=== PATIENT | female | born 1965 | race Caucasian/White ===

== ENCOUNTER 2017-12-15 13:38 | Day surgery (SDC) | END 2017-12-15 19:07 | disposition home or self-care (01) ==

== ENCOUNTER 2018-02-24 17:04 | Emergency (ER) | END 2018-02-24 23:29 | disposition home or self-care (01) ==

== ENCOUNTER 2018-03-23 16:19 | Emergency (ER) | END 2018-03-23 19:20 | disposition home or self-care (01) ==

== ENCOUNTER 2018-04-12 08:20 | Emergency (ER) | END 2018-04-12 09:21 | disposition home or self-care (01) ==

== ENCOUNTER 2018-04-24 19:18 | Emergency (ER) | END 2018-04-24 21:46 | disposition home or self-care (01) ==

== ENCOUNTER 2018-09-14 07:39 | Day surgery (SDC) | payer OTHER ==
[~2018-09-14] VITALS: Ht 157.5 cm; Wt 57.8 kg
[~2018-09-14 07:39] MED LIST: ASPI81TA52 PO; ATOR40TA68 PO; BENA20TA4 PO; CEPH-443 PO; CLIN300C10 PO; D-ME473S2 PO; FLUC150T PO; GLIP10TA14 PO; IBUP-1542 PO; METF100010 PO; OMEP20CA16 PO; PHEN-538 PO; SITA100T11 PO; SULF1TAB31 PO; TRAM50TA2 PO
[2018-09-14] MEDS ORDERED: LIDOCAINE 4% SOLUTION 50 ML BTL ONE (08:44)
[2018-09-14 09:01] VITALS: Ht 157.5 cm; Wt 57.8 kg
[2018-09-14] MEDS ORDERED: SIMVASTATIN PO (09:07)
[2018-09-14] MEDS ORDERED: BP MED PO (09:07)
[2018-09-14] MEDS ORDERED: FENTAnyl 50 MCG/ML VIAL ONE (10:58)
[2018-09-14] MEDS ORDERED: MIDAZOLAM 1 MG/ML 2 ML INJ ONE ×2 (10:58)
[2018-09-14] MEDS ORDERED: NALOXONE (0.4 MG/ML) INJ ONE (10:59)
== END 2018-09-14 15:12 | disposition home or self-care (01) ==
LOC: GIL 07:39
PROVIDERS: ATTEND Internal Medicine Gastroenterology
DX: Z12.11 Encounter for screening for malignant neoplasm of colon (principal); K29.50 Unspecified chronic gastritis without bleeding; K64.4 Residual hemorrhoidal skin tags; K31.811 Angiodysplasia of stomach and duodenum with bleeding; K20.8 Other esophagitis; E11.9 Type 2 diabetes mellitus without complications
CPT/HCPCS: 43239; 45378; 82962; 84703; 88305; 88312; J2250; J2310; J3010; Z7610

== ENCOUNTER 2018-11-25 07:46 | Emergency (ER) | payer OTHER ==
[~2018-11-25] VITALS: Ht 157.5 cm; Wt 57.0 kg
[~2018-11-25 07:46] MED LIST changes: -ASPI81TA52 PO; -ATOR40TA68 PO; -BENA20TA4 PO; +BP MED PO; -CEPH-443 PO; -CLIN300C10 PO; -D-ME473S2 PO; -FLUC150T PO; -IBUP-1542 PO; -OMEP20CA16 PO; -PHEN-538 PO; +SIMVASTATIN PO; -SITA100T11 PO; -SULF1TAB31 PO; -TRAM50TA2 PO
[2018-11-25 07:47] VITALS: BP 143/90; PULSE 76; RESP 16; Ht 157.5 cm; Wt 57.0 kg
[2018-11-25] MEDS ORDERED: KETOROLAC 15 MG INJ IM STA (08:12)
[2018-11-25] MEDS ORDERED: BACL10TA PO (09:22)
[2018-11-25] MEDS ORDERED: IBUP-1542 PO (09:22)
--- NOTE | 2018-11-25 09:30 | ERD ---
ER Documentation Chief Complaint Chief Complaint DIZZINESS X 2 WEEKS , HEADACHE X 1 DAY , FREQUENCY OF URINATION , ITCHING HPI Patient is a 53-year-old female with past medical history of DM type II, hyperlipidemia presents to the ER for concerns of multiple complaints. Patient states she is having headache. She describes the pain to be throughout her head. She states pain started yesterday. She states she has had headaches in the past. Patient states she feels as if she has a "balloon" in her head. Patient denies any blurry vision, nausea, vomiting, acute confusion, excessive sleepiness or loss of consciousness. Patient denies photophobia or phonophobia. Patient denies any fevers, chills, neck pain or neck stiffness. Patient does have tenderness to her right trapezius muscles. Patient denies any falls or tr auma. Patient denies any blood thinner use. Patient also states that she is having urinary urgency. Patient states she had UTIs in the past and she wants to make sure she does not have a UTI. She denies any frequency or hematuria. She denies any flank pain. Patient also reports generalized itching throughout her body. She states her arms are itchy. Patient has no rashes. She denies any abdominal pain, chest pain, shortness of breath. ROS All systems reviewed and are negative except as per history of present illness. Medications Home Meds Active Scripts Baclofen* (Baclofen*) 10 Mg Tablet, 10 MG PO TID, #15 TAB Prov:VISHAL JULIAN PA-C 11/25/18 Ibuprofen* (Motrin*) 600 Mg Tab, 600 MG PO Q6, #30 TAB Prov:VISHAL JULIAN PA-C 11/25/18 Reported Medications [Bp Med] No Conflict Check, PO 09/14/18 [Simvastatin] No Conflict Check, PO 09/14/18 Metformin Hcl* (Metformin Hcl*) 1,000 Mg Tablet, 1000 MG PO WITH BREAKFAST DINNE, #60 TAB 12/15/17 Glipizide* (Glipizide*) 10 Mg Tablet, 10 MG PO AC BREAKFAST DINNER, TAB 12/15/17 Allergies Allergies: Coded Allergies: ranitidine (Verified Allergy, Unknown, RASH, 04/12/18) PMhx/Soc History of Surgery: Yes (CSECTION X2) Anesthesia Reaction: No Hx Neurological Disorder: No Hx Respiratory Disorders: No Hx Cardiac Disorders: Yes (HTN, HIGH CHOLESTEROL) Hx Psychiatric Problems: No Hx Miscellaneous Medical Probl: No Hx Alcohol Use: No Hx Substance Use: No Hx Tobacco Use: No Smoking Status: Never smoker FmHx Family History: No diabetes Physical Exam Vitals Vital Signs Date Temp Pulse Resp B/P (MAP) Pulse Ox O2 O2 Flow FiO2 Time Delivery Rate 11/25/18 98.2 76 16 143/90 100 07:47 (107) Physical Exam GENERAL: Well-developed, well-nourished female. Appears in no acute distress. Speaking in full sentences. HEAD: Normocephalic, atraumatic. EYES: Pupils are equally reactive bilaterally. EOMs grossly intact. No c onjunctival erythema. ENT: Moist mucous membranes. No uvula deviation. No kissing tonsils. NECK: Supple. No meningismus. Normal range of motion of the neck. Tender to palpation of right trapezius muscles. LUNG: Clear to auscultation bilaterally. No rhonchi, wheezing, rales or coarse breath sounds. HEART: Regular rate and rhythm. No murmurs, rubs or gallops. EXTREMITIES: Equal pulses bilaterally. No peripheral clubbing, cyanosis or edema. No unilateral leg swelling. NEUROLOGIC: Alert and oriented x3, cooperative. Mood and affect appropriate to situation. Cranial nerves II through XII are grossly intact. Normal speech. Motor exam: 5/5 strength in upper and lower extremities. Sensory exam: Sensation intact to light touch on all four extremities. Steady gait. No pronator drift. SKIN: Normal color. Warm and dry. No rashes or lesions. Results 24 hrs Laboratory Tests Test 11/25/18 08:26 11/25/18 08:27 POC Beta HCG, Qualitative NEGATIVE Bedside Urine pH (LAB) 6.0 Bedside Urine Protein (LAB) Negative Bedside Urine Glucose (UA) 0.1% Bedside Urine Ketones (LAB) Negative Bedside Urine Blood Negative Bedside Urine Nitrite (LAB) Negative Bedside Urine Leukocyte Esterase (L Negative Current Medications Medications Dose Sig/Gabo Start Time Status Last (Trade) Ordered Route PRN Stop Time Admin Dose Reason Admin Ketorolac 15 mg ONCE STAT 11/25/18 DC 11/25/18 Tromethamine IM 08:12 08:33 (Toradol) 11/25/18 08:14 Procedures/MDM MEDICAL DECISION MAKING: This is a 53-year-old female presents the ER for concerns of multiple complaints. Patient states she has a headache, urinary urgency and generalized body itching. Vital signs were reviewed. Patient was afebrile. Patient is not hypoxic. Patient has had headaches in the past. Patient denied any fevers, neck stiffness, jaw claudication, visual changes or LOC. On exam, patient did have reproducible pain to her right trapezius muscles. Muscle spasms were noted. Full neurological exam was normal. Patient likely has a tension headache. Patient was given Toradol IM and she did report improvement in symptoms. Patient's urine was negative for acute infection or hematuria. Patient was advised that her urinary urgency is likely due to her diabetes. Patient was advised on strict DM compliance. Patient advised to follow-up with her regular doctor for further management of her symptoms. Patient was advised to take Benadryl for generalized itching. At this time, the patient presentation most consistent with tension headache, urinary urgency and generalized itching. Differential diagnosis includes but was not limited to CVA, TIA, intracranial hemorrhage, meningitis, encephalitis, CO poisoning, temporal arteritis, benign intracranial hypertension, intracranial mass, glaucoma, preeclampsia, sinusitis, pyelonephritis, nephrolithiasis, DKA. PRESCRIPTIONS: Ibuprofen, baclofen DISCHARGE: At this time, patient is stable for discharge and outpatient management. I have encouraged the patient to hydrate well. I have instructed the patient to follow- up with his/her primary care physician in 1-2 days. If symptoms persist, patient may need to see a specialist for further examinations and testing. I have instructed the patient to promptly return to the ER at any time for any new or worsening symptoms including increased increased pain, fever, nausea, vomiting, numbness, neck stiffness, visual changes, weakness or LOC. The patient and/or family expressed understanding of and agreement with this plan. All questions were answered. Home care instructions were provided. Disclaimer: Inadvertent spelling and grammatical errors are likely due to EHR/dictation software use and do not reflect on the overall quality of patient care. Also, please note that the electronic time recorded on this note does not necessarily reflect the actual time of the patient encounter. Departure Diagnosis: Primary Impression: Multiple complaints Additional Impressions: Tension headache Urinary urgency Muscle spasms of neck Condition: Fair Patient Instructions: Tension Headaches, Dysuria, Uncertain Cause (Adult) Referrals: COMMUNITY CLINICS YOU HAVE RECEIVED A MEDICAL SCREENING EXAM AND THE RESULTS INDICATE THAT YOU DO NOT HAVE A CONDITION THAT REQUIRES URGENT TREATMENT IN THE EMERGENCY DEPARTMENT. FURTHER EVALUATION AND TREATMENT OF YOUR CONDITION CAN WAIT UNTIL YOU ARE SEEN IN YOUR DOCTORS OFFICE WITHIN THE NEXT 1-2 DAYS. IT IS YOUR RESPONSIBILITY TO MAKE AN APPOINTMENT FOR FOLOW-UP CARE. IF YOU HAVE A PRIMARY DOCTOR --you should call your primary doctor and schedule an appointment IF YOU DO NOT HAVE A PRIMARY DOCTOR YOU CAN CALL OUR PHYSICIAN REFERRAL HOTLINE AT IF YOU CAN NOT AFFORD TO SEE A PHYSICIAN YOU CAN CHOSE FROM THE FOLLOWING [facility] [address] [facility] [facility] [address] [facility] [facility] [address] [facility] [facility] [address] [facility] [facility] [address] [facility]. [facility] [address] [facility]. [facility] YOU HAVE RECEIVED A MEDICAL SCREENING EXAM AND THE RESULTS INDICATE THAT YOU DO NOT HAVE A CONDITION THAT REQUIRES URGENT TREATMENT IN THE EMERGENCY DEPARTMENT. FURTHER EVALUATION AND TREATMENT OF YOUR CONDITION CAN WAIT UNTIL YOU ARE SEEN IN YOUR DOCTORS OFFICE WITHIN THE NEXT 1-2 DAYS. IT IS YOUR RESPONSIBILITY TO MAKE AN APPOINTMENT FOR FOLOW-UP CARE. IF YOU HAVE A PRIMARY DOCTOR --you should call your primary doctor and schedule and appointment IF YOU DO NOT HAVE A PRIMARY DOCTOR YOU CAN CALL OUR PHYSICIAN REFERRAL HOTLINE AT . IF YOU CAN NOT AFFORD TO SEE A PHYSICIAN YOU CAN CHOSE FROM THE FOLLOWING [facility] INSTITUTIONS: [facility] [address] [place] [address] [facility] [address] [place] [address] [facility] + [facility] [address] [place] [address] Additional Instructions: Call your primary care doctor TOMORROW for an appointment during the next 1-2 days.See the doctor sooner or return here if your condition worsens before your appointment time. VISHAL JULIAN PA-C November 25, 2018 09:30
== END 2018-11-25 09:26 | disposition home or self-care (01) ==
LOC: FTE 07:46
DX: G44.209 Tension-type headache, unspecified, not intractable (principal); R39.15 Urgency of urination; M62.838 Other muscle spasm; E11.9 Type 2 diabetes mellitus without complications; I10 Essential (primary) hypertension; Z79.84 Long term (current) use of oral hypoglycemic drugs
CPT/HCPCS: 81003; 81025; 96372; J1885; Z7502

== ENCOUNTER 2018-11-29 18:11 | Inpatient (IN) | payer OTHER ==
[~2018-11-29] VITALS: Ht 157.5 cm; Wt 57.3 kg
[~2018-11-29 18:11] MED LIST changes: +BACL10TA PO; +IBUP-1542 PO
[2018-11-29] MEDS ORDERED: ASPIRIN 325 MG TAB PO ONE (21:00)
[2018-11-29] MEDS ORDERED: BISACODYL (EC) 5 MG TAB PO PRN (21:30)
[2018-11-29] MEDS ORDERED: ACETAMINOPHEN 325 MG TAB PO PRN ×2 (21:30)
[2018-11-29] MEDS ORDERED: DOCUSATE SODIUM 100 MG CAP PO PRN (21:30)
[2018-11-29] MEDS ORDERED: ONDANSETRON 4 MG INJ IV PRN ×2 (21:30)
[2018-11-29] MEDS ORDERED: NACL 0.9% 3 ML SYG IV SCH (21:30)
[2018-11-29] MEDS ORDERED: hydrALAzine 20 MG INJ IV PRN (21:30)
--- NOTE | 2018-11-29 21:57 | ERD ---
ER Documentation Chief Complaint Chief Complaint Headache 4days feels she has a fevers, generalized malaise HPI Patient is a 53-year-old female with hypertension, diabetes, and high cholesterol who presents with headache. She had a headache which started on Monday. She felt hot in the head and the face. Today she started with left leg, left arm, and left facial numbness. She was seen on November 25 and was discharged from the emergency department that day. She has had no treatment as of yet. The symptoms have been constant. Upon review of old medical records the patient has multiple visits for various complaints. The patient does not remember the name of the primary doctor. ROS All systems reviewed and are negative except as per history of present illness. Medications Home Meds Active Scripts Baclofen* (Baclofen*) 10 Mg Tablet, 10 MG PO TID, #15 TAB Prov:VISHAL JULIAN PA-C 11/25/18 Ibuprofen* (Motrin*) 600 Mg Tab, 600 MG PO Q6, #30 TAB Prov:VISHAL JULIAN PA-C 11/25/18 Reported Medications [Bp Med] No Conflict Check, PO 09/14/18 [Simvastatin] No Conflict Check, PO 09/14/18 Metformin Hcl* (Metformin Hcl*) 1,000 Mg Tablet, 1000 MG PO WITH BREAKFAST DINNE, #60 TAB 12/15/17 Glipizide* (Glipizide*) 10 Mg Tablet, 10 MG PO AC BREAKFAST DINNER, TAB 12/15/17 Allergies Allergies: Coded Allergies: ranitidine (Verified Allergy, Unknown, RASH, 04/12/18) PMhx/Soc History of Surgery: Yes (CSECTION X2) Anesthesia Reaction: No Hx Neurological Disorder: No Hx Respiratory Disorders: No Hx Cardiac Disorders: Yes (HTN, HIGH CHOLESTEROL) Hx Psychiatric Problems: No Hx Miscellaneous Medical Probl: No Hx Alcohol Use: No Hx Substance Use: No Hx Tobacco Use: No Smoking Status: Never smoker FmHx Family History: diabetes Physical Exam Vitals Vital Signs Date Temp Pulse Resp B/P (MAP) Pulse Ox O2 O2 Flow FiO2 Time Delivery Rate 11/29/18 74 20 149/90 100 Room Air 21:00 (109) 11/29/18 77 18 149/94 100 Room Air 20:00 (112) 11/29/18 75 12 136/83 100 Room Air 19:08 (100) 11/29/18 97.2 81 22 130/87 100 18:31 (101) Physical Exam Const: No acute distress Head: Atraumatic Eyes: Normal Conjunctiva ENT: Normal External Ears, Nose and Mouth. Neck: Full range of motion. No meningismus. Resp: Clear to auscultation bilaterally Cardio: Regular rate and rhythm, no murmurs Abd: Soft, non tender, non distended. Normal bowel sounds Skin: No petechiae or rashes Back: No midline or flank tenderness Ext: No cyanosis, or edema Neur: Awake and alert, cranial nerves II through XII are intact, strength is 5 out of 5 in all 4 extremities, no slurred speech or pronator drift, patient does report sensation loss to the left face, left arm, and left leg Psych: Normal Mood and Affect Result Diagram: 11/29/18191511/29/181915 Results 24 hrs Laboratory Tests Test 11/29/18 19:16 11/29/18 19:34 White Blood Count 5.0 10^3/ul Red Blood Count 4.48 10^6/ul Hemoglobin 13.3 g/dl Hematocrit 39.7 % Mean Corpuscular Volume 88.6 fl Mean Corpuscular Hemoglobin 29.7 pg Mean Corpuscular Hemoglobin Concent 33.5 g/dl Red Cell Distribution Width 11.9 % Platelet Count 233 10^3/UL Mean Platelet Volume 9.7 fl Immature Granulocytes % 0.400 % Neutrophils % 56.3 % Lymphocytes % 30.9 % Monocytes % 8.8 % Eosinophils % 3.2 % Basophils % 0.4 % Nucleated Red Blood Cells % 0.0 /100WBC Immature Granulocytes # 0.020 10^3/ul Neutrophils # 2.8 10^3/ul Lymphocytes # 1.5 10^3/ul Monocytes # 0.4 10^3/ul Eosinophils # 0.2 10^3/ul Basophils # 0.0 10^3/ul Nucleated Red Blood Cells # 0.0 10^3/ul Prothrombin Time 12.4 Sec Prothrombin Time Ratio 1.0 INR International Normalized Ratio 0.91 Activated Partial Thromboplast Time 25.8 Sec Urine Color YELLOW Urine Clarity CLEAR Urine pH 6.0 Urine Specific Cranks 1.022 Urine Ketones TRACE mg/dL Urine Nitrite NEGATIVE mg/dL Urine Bilirubin NEGATIVE mg/dL Urine Urobilinogen NEGATIVE mg/dL Urine Leukocyte Esterase NEGATIVE Bhavik/ul Urine Hemoglobin NEGATIVE mg/dL Urine Glucose 3+ mg/dL Urine Total Protein NEGATIVE mg/dl Sodium Level 140 mmol/L Potassium Level 4.0 mmol/L Chloride Level 103 mmol/L Carbon Dioxide Level 28 mmol/L Anion Gap 9 Blood Urea Nitrogen 22 mg/dl Creatinine 0.70 mg/dl Est Glomerular Filtrat Rate mL/min > 60 mL/min Glucose Level 198 mg/dl Hemoglobin A1c 9.7 % Calcium Level 9.5 mg/dl Troponin I < 0.012 ng/ml Triglycerides Level 142 mg/dl Cholesterol Level 152 mg/dl LDL Cholesterol, Calculated 83 mg/dl HDL Cholesterol 41 mg/dl Cholesterol/HDL Ratio 3.7 RATIO Urine Opiates Screen Negative Urine Barbiturates Negative Urine Amphetamines Screen Negative Urine Benzodiazepines Screen Negative Urine Cocaine Screen Negative Urine Cannabinoids Negative Bedside Glucose 192 mg/dL Current Medications Medications Dose Sig/Gabo Start Time Status Last (Trade) Ordered Route PRN Stop Time Admin Dose Reason Admin Aspirin 325 mg ONCE ONCE 11/29/18 DC 11/29/18 (Aspirin) PO 21:00 21:11 11/29/18 21:01 Ondansetron 4 mg ER BRIDGE 11/29/18 HCl (Zofran PRN IV 21:30 Inj) NAUSEA/VOMITI 11/30/18 21:29 NG 650 mg ER BRIDGE 11/29/18 Acetaminophen PRN PO 21:30 (Tylenol .MILD PAIN 11/30/18 21:29 Tab) 1-3 OR TEMP IV Flush 3 ml PER 11/29/18 (NS 3 ml) PROTOCOL IV 21:30 Ondansetron 4 mg Q6H PRN 11/29/18 HCl (Zofran IV 21:30 Inj) NAUSEA/VOMITI NG Aspirin 81 mg DAILY PO 11/30/18 (Aspirin) 09:00 650 mg Q6H PRN 11/29/18 Acetaminophen PO .PAIN 1-3 21:30 (Tylenol OR TEMP Tab) Docusate 100 mg Q12H PRN 11/29/18 Sodium PO 21:30 (Colace) .CONSTIPATION Bisacodyl 5 mg DAILY PRN 11/29/18 (Dulcolax) PO 21:30 .CONSTIPATION Hydralazine 10 mg Q4H PRN 11/29/18 HCl IV ELEVATED 21:30 (Apresoline) BLOOD PRESSURE Procedures/MDM CT brain negative per radiology. Chest x-ray read by radiology. EKG read by me: Rate/Rhythm: Regular rate and rhythm at a normal rate Intervals: Normal Impression: No evidence of ischemia or arrhythmia Patient is a 53-year-old female who presents with strokelike symptoms. The patient is outside the window for TPA or for mechanical retrieval given the fact that the headache started on Monday. The patient was given aspirin after she passed a swallow evaluation and CT scan was negative for mass or bleed. The patient will need admission to a telemetry bed under the panel team for stroke work-up. Departure Diagnosis: Primary Impression: Stroke Condition: CHENG March MD November 29, 2018 21:57
--- NOTE | 2018-11-29 21:57 | HP ---
Date/Time of Note Date/Time of Note DATE: 11/29/18 TIME: 21:56 Assessment/Plan VTE Prophylaxis SCD applied (from Nsg): Yes Pharmacological prophylaxis: NA/contraindicated Pharm contraindication: low risk/ambulating Lines/Catheters IV Catheter Type (from Nrsg): Saline Lock Assessment/Plan Hospital Course This is a 53-year female being admitted to the telemetry floor for: 1 left-sided paresthesias and weakness: Rule out CVA versus nerve impingement versus complex migraine versus muscle spasm versus other. Patient has all left- sided symptoms. She does have tenderness palpation of the bilateral trapezius muscles which makes me suspicious for possible muscle spasm versus cervical spine pathology. Will check an MRI of the brain and MRI of the cervical spine. I will give the patient a trial of Toradol to see if this helps with her headache as well as her bilateral trapezius muscle spasm. Permissive hypertension for the first 24 hours. Neuro checks every 4 hours. PT OT evaluation. We will check hemoglobin A 1C, lipid panel, TSH. Patient did receive aspirin in the emergency department. Consult neurology 2 hypertension: We will hold patient's home blood pressure medications in the setting of permissive hypertension over the first 24 hours PRN hydralazine for blood pressure greater than 220/120 3. Hyperlipidemia: We will check lipid panel, continue statin 4. Diabetes mellitus: We will check hemoglobin A 1C, resume home diabetes medication, insulin sliding scale 5 DVT GI prophylaxis: SCDs, no GI prophylaxis indicated Further treatment strategy will be implemented as per the clinical course Result Diagram: 11/29/18191511/29/181915 Results 24hrs Laboratory Tests Test 11/29/18 19:16 11/29/18 19:34 White Blood Count 5.0 Red Blood Count 4.48 Hemoglobin 13.3 Hematocrit 39.7 Mean Corpuscular Volume 88.6 Mean Corpuscular Hemoglobin 29.7 Mean Corpuscular Hemoglobin Concent 33.5 Red Cell Distribution Width 11.9 Platelet Count 233 Mean Platelet Volume 9.7 Immature Granulocytes % 0.400 Neutrophils % 56.3 Lymphocytes % 30.9 Monocytes % 8.8 Eosinophils % 3.2 Basophils % 0.4 Nucleated Red Blood Cells % 0.0 Immature Granulocytes # 0.020 Neutrophils # 2.8 Lymphocytes # 1.5 Monocytes # 0.4 Eosinophils # 0.2 Basophils # 0.0 Nucleated Red Blood Cells # 0.0 Prothrombin Time 12.4 Prothrombin Time Ratio 1.0 INR International Normalized Ratio 0.91 Activated Partial Thromboplast Time 25.8 Urine Color YELLOW Urine Clarity CLEAR Urine pH 6.0 Urine Specific [place] 1.022 Urine Ketones TRACE A Urine Nitrite NEGATIVE Urine Bilirubin NEGATIVE Urine Urobilinogen NEGATIVE Urine Leukocyte Esterase NEGATIVE Urine Hemoglobin NEGATIVE Urine Glucose 3+ H Urine Total Protein NEGATIVE Sodium Level 140 Potassium Level 4.0 Chloride Level 103 Carbon Dioxide Level 28 Anion Gap 9 Blood Urea Nitrogen 22 H Creatinine 0.70 Est Glomerular Filtrat Rate mL/min > 60 Glucose Level 198 Hemoglobin A1c 9.7 H Calcium Level 9.5 Troponin I < 0.012 Triglycerides Level 142 Cholesterol Level 152 LDL Cholesterol, Calculated 83 HDL Cholesterol 41 Cholesterol/HDL Ratio 3.7 Urine Opiates Screen Negative Urine Barbiturates Negative Urine Amphetamines Screen Negative Urine Benzodiazepines Screen Negative Urine Cocaine Screen Negative Urine Cannabinoids Negative Bedside Glucose 192 HPI/ROS Admit Date/Time Admit Date/Time Hx of Present Illness Chief complaint: Left-sided upper extremity and facial numbness and weakness, headache This is a 53-year-old female with a past medical history of diabetes mellitus, hypertension, hyperlipidemia who presented to the emergency department with complaints of left-sided numbness and weakness. Patient originally started experiencing a headache on Monday. She was seen on November 25 in the emergency department and was diagnosed with a tension headache and was discharged home. Patient reports that she then started experiencing left-sided facial numbness and left lower upper and lower extremity numbness and weakness. She also was experiencing some eye twitching. When she would eat food she also felt like the sensation was decreased on her left side of the mouth. She does not report any stresses out of the ordinary. She denies any changes in her vision. She denies any fevers or shortness of breath or nausea vomiting or diarrhea. Denies any ringing in the ears. She denies any photophobia or phonophobia. Allergies: Ranitidine Medications: See LASHON MORALES Const: As per HPI Eyes : No pain discharge or redness or change in visual acuity ENT: No pain, sore throat, congestion, congestion, dysphagia or discharge Respiratory: No shortness of breath, cough, sputum, wheezing, or pleuritic pain Cardiovascular: No chest pain, palpitation, PND, or edema GI : no change in appetite, abdominal pain, nausea, vomiting, diarrhea, constipation, or change in the color his stool Genitourinary: No dysuria, hematuria, flank pain , discharge or CVA tenderness Musculoskeletal: No joint pain, back pain, neck pain, restricted range of motion in neck or joints Skin: No rash, bruising or hives Neuro: As per HPI Endocrine: No polyuria, polydipsia, temperature intolerance Psych: No hallucination, depression, anxiety or suicidal ideation PMH/Family/Social Past Medical History Hypertension, hyperlipidemia, diabetes mellitus Medications Current Medications Ondansetron HCl (Zofran Inj) 4 mg ER BRIDGE PRN IV NAUSEA/VOMITING; Start 11/29/18 at 21:30; Stop 11/30/18 at 21:29 Acetaminophen (Tylenol Tab) 650 mg ER BRIDGE PRN PO .MILD PAIN 1-3 OR TEMP; Start 11/29/18 at 21:30; Stop 11/30/18 at 21:29 IV Flush (NS 3 ml) 3 ml PER PROTOCOL IV ; Start 11/29/18 at 21:30 Ondansetron HCl (Zofran Inj) 4 mg Q6H PRN IV NAUSEA/VOMITING; Start 11/29/18 at 21:30 Aspirin (Aspirin) 81 mg DAILY PO ; Start 11/30/18 at 09:00 Acetaminophen (Tylenol Tab) 650 mg Q6H PRN PO .PAIN 1-3 OR TEMP; Start 11/29/18 at 21:30 Docusate Sodium (Colace) 100 mg Q12H PRN PO .CONSTIPATION; Start 11/29/18 at 21:30 Bisacodyl (Dulcolax) 5 mg DAILY PRN PO .CONSTIPATION; Start 11/29/18 at 21:30 Hydralazine HCl (Apresoline) 10 mg Q4H PRN IV ELEVATED BLOOD PRESSURE; Start 11/29/18 at 21:30 Coded Allergies: ranitidine (Unverified Allergy, Unknown, RASH, 11/30/18) Past Surgical History x2 Past Surgical Hx: other Family History Significant Family History: no pertinent family hx Social History Alcohol Use: none Smoking Status: Never smoker Drug Use: none Exam/Review of Systems Vital Signs Vitals Vital Signs Date Temp Pulse Resp B/P (MAP) Pulse Ox O2 O2 Flow FiO2 Time Delivery Rate 11/29/18 74 20 149/90 100 Room Air 21:00 (109) 11/29/18 97.2 18:31 Exam Exam General: Patient is a pleasant female currently lying in bed in no acute distress, she does report feeling subjective numbness in her left upper extremity, subjective occipital headache. HEENT: Atraumatic, normocephalic. The pupils are equal, round and reactive. Extraocular motor are intact Neck: Supple with full range of motion. No rigidity or meningismus Chest: Nontender Lungs: Clear to auscultation bilaterally no crackles rales or wheezing Heart: Normal S1-S2, Regular rhythm and rate. No murmur, S3, or S4 Abdomen: Soft , nontender, nondistended , bowel sounds are present. No guarding no rebound tenderness , No masses or organomegaly. No costovertebral temporal angle mass Extremities: Normal to inspection, no edema no cyanosis Musculoskeletal: Tender to palpation along the bilateral trapezius muscles Neurologic: Normal mental status, speech normal, cranial nerves II through XII are intact, motor and sensory are intact, subjective numbness in the left upper extremity. Additional Comments PROCEDURE: CT Brain without IV contrast. CLINICAL INDICATION: Focal neurological deficit.. TECHNIQUE: A CT of the brain was performed on a multislice detector CT scanner utilizing axial sections from the skull base through the vertex without contrast. Images were reviewed on a high-resolution PACS workstation. Exam CTDlvol = 40 mGy-cm and DLP = 634 mGy-cm. One of the following 3 dose reduction techniques were used: Automated exposure control; adjustment of the mA and/or kV according to patient size; or use of iterative reconstruction technique. DICOM images are available. COMPARISON: None available FINDINGS: There is age appropriate central and peripheral atrophy. There is no midline shift. There is no definite acute stroke. There is no mass lesion. There is no intracranial hemorrhage or abnormal extra-axial fluid collection. Visualized paranasal sinuses are clear. IMPRESSION: No acute intracranial abnormality. RPTAT: HMVK .Tony Jordan MD, Date Time Electronically viewed and signed by .Tony Jordan MD, MD on 11/29/2018 20:52 .K/ CC: CHENG ALCANTARA MD [id number] ROCEDURE: XR Chest. CLINICAL INDICATION: Shortness of breath. TECHNIQUE: Single frontal chest x-ray. COMPARISON: None. FINDINGS: The cardiomediastinal silhouette is unremarkable. There is no congestive heart failure.. No focal infiltrate is seen. There is no pleural effusion. There is no pneumothorax. The osseous structures are unremarkable. IMPRESSION: 1. No active disease. RPTAT: HMVK .Tony Jordan MD, MD Date Time Electronically viewed and signed by .Tony Jordan MD, MD on 11/29/2018 19:55 .K/ CC: CHENG ALCANTARA MD [id number] BOYD ELIZONDO November 29, 2018 21:57
[2018-11-30] VITALS (9 sets, daily range): BP systolic 130–171; BP diastolic 72–76; PULSE 59–88; RESP 18–19; Ht 157.5 cm; Wt 57.3 kg
[2018-11-30] MEDS ORDERED: ASA/ACETAMINOPHEN/CAFF TAB PO ONE (03:30)
[2018-11-30] MEDS ORDERED: KETOROLAC 15 MG INJ IV STA (04:55)
[2018-11-30] MEDS ORDERED: KETOROLAC 15 MG INJ IM STA (04:55)
[2018-11-30] MEDS ORDERED: KETOROLAC 15 MG INJ IV ONE (06:02)
[2018-11-30] MEDS ORDERED: KETOROLAC 15 MG INJ IV PRN (06:03)
[2018-11-30] MEDS: ASPIRIN 81 MG TAB PO SCH (08:17)
[2018-11-30] MEDS ORDERED: GLUCOSE GEL 15 GRAM TUBE BUCCAL PRN (09:30)
[2018-11-30] MEDS ORDERED: GLUCAGON 1 MG INJ IM PRN (09:30)
[2018-11-30] MEDS ORDERED: GLUCOSE GEL 15 GRAM TUBE PO PRN ×2 (09:30)
[2018-11-30] MEDS ORDERED: DEXTROSE 50% 50 ML SYRINGE IV PRN ×2 (09:30)
--- NOTE | 2018-11-30 10:25 | PN ---
Date/Time of Note Date/Time of Note DATE: 11/30/18 TIME: 10:25 Assessment/Plan VTE Prophylaxis Risk score (from Ns)>0 risk: 1 SCD applied (from Ns): Yes Pharmacological prophylaxis: NA/contraindicated Pharm contraindication: low risk/ambulating Lines/Catheters [facility] Saline Lock Urinary Cath still in place: No Assessment/Plan Hospital Course SUBJECTIVE: Continues to complain of left-sided numbness. OBJECTIVE: Physical Exam General: Adequately build 53 year-old female lying in bed in no apparent distress. HEENT: Normocephalic, atraumatic. Eyes: Anicteric sclerae, conjunctivae clear. ENT: Nasal septum midline, oral mucosa moist. Neck supple, no JVD noticed. Respiratory: Bilaterally clear breath sounds. No use of accessory muscles of respiration. No adventitious breath sounds. Cardiovascular: S1, S2 heard. No murmurs or gallops. Abdomen: Soft, nontender, and nondistended. Bowel sounds positive in all 4 cristine drants. Genitourinary: Deferred. Extremities: No cyanosis, no clubbing, no edema. Peripheral pulses palpable. Neurologic: The patient is awake, alert, and oriented. Decreased sensation on the left side of face, left upper extremity, and left lower extremity. Skin: Normal skin turgor. No skin rashes. Labs & Vitals per chart ASSESSMENT & PLAN 53-year-old female with comorbidities including diabetes mellitus, hypertension, dyslipidemia who came to the emergency room with chief complaint of left upper extremity, left lower extremity, and facial numbness, and headache, was admitted to inpatient setting for further treatment and evaluation. 1. Left upper extremity and facial numbness associated with headache. -Etiology unclear. -Brain MRI pending. Brain CT scan negative. -Continue aspirin and statins. -Pending neurology evaluation. 2. Essential hypertension. -Permissive hypertension for suspected stroke. 3. Diabetes mellitus type 2. -Hemoglobin A1c 9.7. -Continue sliding scale insulin. Add basal insulin pre-meal insulin. 4. Dyslipidemia. -Continue statins. 5. Fluids, electrolytes, and nutrition. -Carbohydrate controlled diet. 6. DVT prophylaxis. -Bilateral SCDs. 7. Plan. -Continue aspirin plus statin. -Await neurology evaluation. -Await brain MRI. The patient was seen in collaboration with Dr. Nava. Result Diagram: 11/30/18 0547 11/30/18 0547 Results 24hrs Laboratory Tests Test 11/29/18 19:16 11/29/18 19:34 11/30/18 05:47 White Blood Count 5.0 4.4 L Red Blood Count 4.48 4.43 Hemoglobin 13.3 13.0 Hematocrit 39.7 39.1 Mean Corpuscular Volume 88.6 88.3 Mean Corpuscular Hemoglobin 29.7 29.3 Mean Corpuscular Hemoglobin Concent 33.5 33.2 Red Cell Distribution Width 11.9 12.1 Platelet Count 233 216 Mean Platelet Volume 9.7 10.3 Immature Granulocytes % 0.400 0.200 Neutrophils % 56.3 54.5 Lymphocytes % 30.9 31.3 Monocytes % 8.8 8.8 Eosinophils % 3.2 4.5 Basophils % 0.4 0.7 Nucleated Red Blood Cells % 0.0 0.0 Immature Granulocytes # 0.020 0.010 Neutrophils # 2.8 2.4 Lymphocytes # 1.5 1.4 Monocytes # 0.4 0.4 Eosinophils # 0.2 0.2 Basophils # 0.0 0.0 Nucleated Red Blood Cells # 0.0 0.0 Prothrombin Time 12.4 Prothrombin Time Ratio 1.0 INR International Normalized Ratio 0.91 Activated Partial Thromboplast Time 25.8 Urine Color YELLOW Urine Clarity CLEAR Urine pH 6.0 Urine Specific [place] 1.022 Urine Ketones TRACE A Urine Nitrite NEGATIVE Urine Bilirubin NEGATIVE Urine Urobilinogen NEGATIVE Urine Leukocyte Esterase NEGATIVE Urine Hemoglobin NEGATIVE Urine Glucose 3+ H Urine Total Protein NEGATIVE Sodium Level 140 141 Potassium Level 4.0 4.6 Chloride Level 103 106 Carbon Dioxide Level 28 29 Anion Gap 9 6 Blood Urea Nitrogen 22 H 18 Creatinine 0.70 0.79 Est Glomerular Filtrat Rate mL/min > 60 > 60 Glucose Level 198 312 H Hemoglobin A1c 9.7 H 9.8 H Calcium Level 9.5 9.2 Troponin I < 0.012 Triglycerides Level 142 166 H Cholesterol Level 152 145 LDL Cholesterol, Calculated 83 79 HDL Cholesterol 41 33 L Cholesterol/HDL Ratio 3.7 4.3 Urine Opiates Screen Negative Urine Barbiturates Negative Urine Amphetamines Screen Negative Urine Benzodiazepines Screen Negative Urine Cocaine Screen Negative Urine Cannabinoids Negative Bedside Glucose 192 Magnesium Level 1.6 L Total Bilirubin 0.4 Direct Bilirubin 0.00 Indirect Bilirubin 0.4 Aspartate Amino Transf (AST/SGOT) 18 Alanine Aminotransferase (ALT/SGPT) 22 Alkaline Phosphatase 51 Total Protein 6.3 Albumin 3.8 Globulin 2.50 Albumin/Globulin Ratio 1.52 Thyroid Stimulating Hormone (TSH) Pending Exam/Review of Systems Exam Vitals Vital Signs Date Temp Pulse Resp B/P (MAP) Pulse Ox O2 O2 Flow FiO2 Time Delivery Rate 11/30/18 98.7 61 18 171/73 97 08:23 (105) 11/30/18 Room Air 02:54 Intake and Output 11/29/18 11/29/18 11/30/18 1515:00 23:00 07:00 IntakeIntake Total 600 ml BalanceBalance 600 ml Results Results 24hrs Laboratory Tests Test 11/29/18 19:16 11/29/18 19:34 11/30/18 05:47 White Blood Count 5.0 4.4 L Red Blood Count 4.48 4.43 Hemoglobin 13.3 13.0 Hematocrit 39.7 39.1 Mean Corpuscular Volume 88.6 88.3 Mean Corpuscular Hemoglobin 29.7 29.3 Mean Corpuscular Hemoglobin Concent 33.5 33.2 Red Cell Distribution Width 11.9 12.1 Platelet Count 233 216 Mean Platelet Volume 9.7 10.3 Immature Granulocytes % 0.400 0.200 Neutrophils % 56.3 54.5 Lymphocytes % 30.9 31.3 Monocytes % 8.8 8.8 Eosinophils % 3.2 4.5 Basophils % 0.4 0.7 Nucleated Red Blood Cells % 0.0 0.0 Immature Granulocytes # 0.020 0.010 Neutrophils # 2.8 2.4 Lymphocytes # 1.5 1.4 Monocytes # 0.4 0.4 Eosinophils # 0.2 0.2 Basophils # 0.0 0.0 Nucleated Red Blood Cells # 0.0 0.0 Prothrombin Time 12.4 Prothrombin Time Ratio 1.0 INR International Normalized Ratio 0.91 Activated Partial Thromboplast Time 25.8 Urine Color YELLOW Urine Clarity CLEAR Urine pH 6.0 Urine Specific [place] 1.022 Urine Ketones TRACE A Urine Nitrite NEGATIVE Urine Bilirubin NEGATIVE Urine Urobilinogen NEGATIVE Urine Leukocyte Esterase NEGATIVE Urine Hemoglobin NEGATIVE Urine Glucose 3+ H Urine Total Protein NEGATIVE Sodium Level 140 141 Potassium Level 4.0 4.6 Chloride Level 103 106 Carbon Dioxide Level 28 29 Anion Gap 9 6 Blood Urea Nitrogen 22 H 18 Creatinine 0.70 0.79 Est Glomerular Filtrat Rate mL/min > 60 > 60 Glucose Level 198 312 H Hemoglobin A1c 9.7 H 9.8 H Calcium Level 9.5 9.2 Troponin I < 0.012 Triglycerides Level 142 166 H Cholesterol Level 152 145 LDL Cholesterol, Calculated 83 79 HDL Cholesterol 41 33 L Cholesterol/HDL Ratio 3.7 4.3 Urine Opiates Screen Negative Urine Barbiturates Negative Urine Amphetamines Screen Negative Urine Benzodiazepines Screen Negative Urine Cocaine Screen Negative Urine Cannabinoids Negative Bedside Glucose 192 Magnesium Level 1.6 L Total Bilirubin 0.4 Direct Bilirubin 0.00 Indirect Bilirubin 0.4 Aspartate Amino Transf (AST/SGOT) 18 Alanine Aminotransferase (ALT/SGPT) 22 Alkaline Phosphatase 51 Total Protein 6.3 Albumin 3.8 Globulin 2.50 Albumin/Globulin Ratio 1.52 Thyroid Stimulating Hormone (TSH) Pending Medications Medication Current Medications IV Flush (NS 3 ml) 3 ml PER PROTOCOL IV ; Start 11/29/18 at 21:30 Ondansetron HCl (Zofran Inj) 4 mg Q6H PRN IV NAUSEA/VOMITING; Start 11/29/18 at 21:30 Aspirin (Aspirin) 81 mg DAILY PO Last administered on 11/30/18at 08:17; Admin Dose 81 MG; Start 11/30/18 at 09:00 Acetaminophen (Tylenol Tab) 650 mg Q6H PRN PO .PAIN 1-3 OR TEMP; Start 11/29/18 at 21:30 Docusate Sodium (Colace) 100 mg Q12H PRN PO .CONSTIPATION; Start 11/29/18 at 21:30 Bisacodyl (Dulcolax) 5 mg DAILY PRN PO .CONSTIPATION; Start 11/29/18 at 21:30 Hydralazine HCl (Apresoline) 10 mg Q4H PRN IV ELEVATED BLOOD PRESSURE; Start 11/29/18 at 21:30 Ketorolac Tromethamine (Toradol) 15 mg Q6H PRN IV PAIN; Start 11/30/18 at 06:03; Stop 12/03/18 at 06:02 Diagnostic Test (Pha) (Accu-Chek) 1 ea 02 XX ; Start 12/01/18 at 02:00 Insulin Aspart (Novolog Insulin Pen) NOVOLOG *MILD* ALGORITHM WITH MEALS BEDTIME SC ; Start 11/30/18 at 11:50 Miscellaneous Information 1 ea NOTE XX ; Start 11/30/18 at 09:30 Glucose (Glutose) 15 gm Q15M PRN PO DECREASED GLUCOSE; Start 11/30/18 at 09:30 Glucose (Glutose) 22.5 gm Q15M PRN PO DECREASED GLUCOSE; Start 11/30/18 at 09:30 Dextrose (D50w Syringe) 25 ml Q15M PRN IV DECREASED GLUCOSE; Start 11/30/18 at 09:30 Dextrose (D50w Syringe) 50 ml Q15M PRN IV DECREASED GLUCOSE; Start 11/30/18 at 09:30 Glucagon (Glucagen) 1 mg Q15M PRN IM DECREASED GLUCOSE; Start 11/30/18 at 09:30 Glucose (Glutose) 15 gm Q15M PRN BUCCAL DECREASED GLUCOSE; Start 11/30/18 at 09:30 Atorvastatin Calcium (Lipitor) 10 mg DAILY@21 PO ; Start 11/30/18 at 21:00 ABIMBOLA FINK NP November 30, 2018 10:25
[2018-11-30] MEDS ORDERED: ACET/BUTAL/CAFF TAB PO PRN (11:00)
[2018-11-30] MEDS: INSULIN ASPART [NOVOLOG] 3 ML PEN SC SCH ×5 (12:02→22:15)
--- NOTE | 2018-11-30 13:23 | CONSI ---
Assessment/Plan Assessment/Plan Assessment/Plan (Recall) 53 yo F with multiple cerebrovascular risk factors who presents for evaluation of headache and L sided weakness/numbness... for which neurology is consulted. The clinical picture is most ominously concerning for acute ischemia. Complex migraines are a diagnosis of exclusion. CTH is unrevealing. Echo is most notable for present of right to left shunt and an asymmetric septal hypertrophy P: Await MRI, MRA H/N for further characterization ASA/Lipitor for now pending the above Add ESR, RPR Toradol IV x 1, followed by trial of naproxen (with protonix) for abortive QUINN therapy BP and other medical management per primary PT/OT/ST as necessary Will follow clinically, to recommend neurologic studies, as necessary Consultation Date/Type/Reason Admit Date/Time Type of Consult Neurology Reason for Consultation headache, L sided weakness/numbness Requesting Provider: BOYD ELIZONDO Date/Time of Note DATE: 11/30/18 TIME: 13:23 Hx of Present Illness 53 yo F with hx of HTN, HLD, DM, who presented to the ED with complaints of headache x 6 days, and L sided weakness/numbness x 1 day. History was obtained from pt and chart review. The pt endorses a hx of headaches, that she gets ~2 times per year, for which she takes OTC pain medication. She continues to endorse a severe headache, 10/10, that is dull, nonradiating, and localized behind her L eye. She states that she does not have associated photophobia, phonophobia, EPS. She states that it is somewhat relieved with current pain medicine. It is additionally elsewhere noted: Hx of Present Illness Chief complaint: Left-sided upper extremity and facial numbness and weakness, headache This is a 53-year-old female with a past medical history of diabetes mellitus, hypertension, hyperlipidemia who presented to the emergency department with complaints of left-sided numbness and weakness. Patient originally started experiencing a headache on Monday. She was seen on November 25 in the emergency department and was diagnosed with a tension headache and was discharged home. Patient reports that she then started experiencing left-sided facial numbness and left lower upper and lower extremity numbness and weakness. She also was experiencing some eye twitching. When she would eat food she also felt like the sensation was decreased on her left side of the mouth. She does not report any stresses out of the ordinary. She denies any changes in her vision. She denies any fevers or shortness of breath or nausea vomiting or diarrhea. Denies any ringing in the ears. She denies any photophobia or phonophobia. negative unless noted otherwise in HPI Objective Exam Vitals Vital Signs Date Temp Pulse Resp B/P (MAP) Pulse Ox O2 O2 Flow FiO2 Time Delivery Rate 11/30/18 98.8 88 18 156/72 97 11:24 (100) 11/30/18 Room Air 02:54 Intake and Output 11/29/18 11/29/18 11/30/18 1515:00 23:00 07:00 IntakeIntake Total 600 ml BalanceBalance 600 ml Exam PE: Gen Appearance: No Apparent Distress HEENT: Normocephalic Cardiovascular: Regular rate Lungs: Clear bilaterally Abdomen: Soft Extremities: Dry NE: The patient was alert and oriented. Language was normal. Fund of knowledge was normal. Pupils were equal and reactive to light. There was no afferent pupillary defect. Visual barfield were normal. Funduscopic examination was limited Extra-ocular movements were full. Ptosis was absent. There was no nystagmus. Facial sensation was diminished on the L. Face was symmetric with normal strength. Hearing was intact. Palate movements were normal. Neck strength was normal. There was normal tongue bulk and speed of movement. Tone was normal. Muscle bulk was normal. I did not see fasciculations. Arms and legs were mildly weak on the L. Vibration sensation was diminished on the L. Temperature and pinprick sensation was normal. Rapid alternating movements were normal. There was no dysmetria. There was no intention tremor. Gait was deferred due to bedrest. Arm and leg reflexes were 2+ and symmetric. Molina's sign was absent. Plantar responses were flexor. Results Result Diagram: 11/30/18 0547 11/30/18 0547 Results 24hrs Laboratory Tests Test 11/29/18 19:16 11/29/18 19:34 11/30/18 05:47 11/30/18 11:52 White Blood Count 5.0 4.4 L Red Blood Count 4.48 4.43 Hemoglobin 13.3 13.0 Hematocrit 39.7 39.1 Mean Corpuscular 88.6 88.3 Volume Mean Corpuscular 29.7 29.3 Hemoglobin Mean Corpuscular 33.5 33.2 Hemoglobin Concent Red Cell 11.9 12.1 Distribution Width Platelet Count 233 216 Mean Platelet Volume 9.7 10.3 Immature 0.400 0.200 Granulocytes % Neutrophils % 56.3 54.5 Lymphocytes % 30.9 31.3 Monocytes % 8.8 8.8 Eosinophils % 3.2 4.5 Basophils % 0.4 0.7 Nucleated Red Blood 0.0 0.0 Cells % Immature 0.020 0.010 Granulocytes # Neutrophils # 2.8 2.4 Lymphocytes # 1.5 1.4 Monocytes # 0.4 0.4 Eosinophils # 0.2 0.2 Basophils # 0.0 0.0 Nucleated Red Blood 0.0 0.0 Cells # Prothrombin Time 12.4 Prothrombin Time 1.0 Ratio INR International 0.91 Normalized Ratio Activated 25.8 Partial Thromboplast Time Urine Color YELLOW Urine Clarity CLEAR Urine pH 6.0 Urine Specific 1.022 [place] Urine Ketones TRACE A Urine Nitrite NEGATIVE Urine Bilirubin NEGATIVE Urine Urobilinogen NEGATIVE Urine Leukocyte NEGATIVE Esterase Urine Hemoglobin NEGATIVE Urine Glucose 3+ H Urine Total Protein NEGATIVE Sodium Level 140 141 Potassium Level 4.0 4.6 Chloride Level 103 106 Carbon Dioxide Level 28 29 Anion Gap 9 6 Blood Urea Nitrogen 22 H 18 Creatinine 0.70 0.79 Est Glomerular > 60 > 60 Filtrat Rate mL/min Glucose Level 198 312 H Hemoglobin A1c 9.7 H 9.8 H Calcium Level 9.5 9.2 Troponin I < 0.012 Triglycerides Level 142 166 H Cholesterol Level 152 145 LDL Cholesterol, 83 79 Calculated HDL Cholesterol 41 33 L Cholesterol/HDL 3.7 4.3 Ratio Urine Opiates Screen Negative Urine Barbiturates Negative Urine Amphetamines Negative Screen Urine Negative Benzodiazepines Screen Urine Cocaine Screen Negative Urine Cannabinoids Negative Bedside Glucose 192 269 H Magnesium Level 1.6 L Total Bilirubin 0.4 Direct Bilirubin 0.00 Indirect Bilirubin 0.4 Aspartate Amino 18 Transf (AST/SGOT) Alanine 22 Aminotransferase (AL T/SGPT) Alkaline Phosphatase 51 Total Protein 6.3 Albumin 3.8 Globulin 2.50 Albumin/Globulin 1.52 Ratio Thyroid Stimulating 1.350 Hormone (TSH) Past Medical History reviewed Home Meds Active Scripts Baclofen* (Baclofen*) 10 Mg Tablet, 10 MG PO TID, #15 TAB Prov:VISHAL JULIAN PA-C 11/25/18 Ibuprofen* (Motrin*) 600 Mg Tab, 600 MG PO Q6, #30 TAB Prov:VISHAL JULIAN PA-C 11/25/18 Reported Medications [Simvastatin] 20MG TAB No Conflict Check, 20 MG PO QHS 09/14/18 Metformin Hcl* (Metformin Hcl*) 1,000 Mg Tablet, 1000 MG PO WITH BREAKFAST DINNE, #60 TAB 12/15/17 Glipizide* (Glipizide*) 10 Mg Tablet, 10 MG PO AC BREAKFAST DINNER, TAB 12/15/17 Discontinued Reported Medications [Bp Med] No Conflict Check, PO 09/14/18 Medications Current Medications IV Flush (NS 3 ml) 3 ml PER PROTOCOL IV ; Start 11/29/18 at 21:30 Ondansetron HCl (Zofran Inj) 4 mg Q6H PRN IV NAUSEA/VOMITING; Start 11/29/18 at 21:30 Aspirin (Aspirin) 81 mg DAILY PO Last administered on 11/30/18at 08:17; Admin Dose 81 MG; Start 11/30/18 at 09:00 Acetaminophen (Tylenol Tab) 650 mg Q6H PRN PO .PAIN 1-3 OR TEMP; Start 11/29/18 at 21:30 Docusate Sodium (Colace) 100 mg Q12H PRN PO .CONSTIPATION; Start 11/29/18 at 21:30 Bisacodyl (Dulcolax) 5 mg DAILY PRN PO .CONSTIPATION; Start 11/29/18 at 21:30 Hydralazine HCl (Apresoline) 10 mg Q4H PRN IV ELEVATED BLOOD PRESSURE; Start 11/29/18 at 21:30 Ketorolac Tromethamine (Toradol) 15 mg Q6H PRN IV PAIN; Start 11/30/18 at 06:03; Stop 12/03/18 at 06:02 Diagnostic Test (Pha) (Accu-Chek) 1 ea 02 XX ; Start 12/01/18 at 02:00 Insulin Aspart (Novolog Insulin Pen) NOVOLOG *MILD* ALGORITHM WITH MEALS BEDTIME SC Last administered on 11/30/18at 12:02; Admin Dose 4 UNIT; Start 11/30/18 at 11:50 Miscellaneous Information 1 ea NOTE XX ; Start 11/30/18 at 09:30 Glucose (Glutose) 15 gm Q15M PRN PO DECREASED GLUCOSE; Start 11/30/18 at 09:30 Glucose (Glutose) 22.5 gm Q15M PRN PO DECREASED GLUCOSE; Start 11/30/18 at 09:30 Dextrose (D50w Syringe) 25 ml Q15M PRN IV DECREASED GLUCOSE; Start 11/30/18 at 09:30 Dextrose (D50w Syringe) 50 ml Q15M PRN IV DECREASED GLUCOSE; Start 11/30/18 at 09:30 Glucagon (Glucagen) 1 mg Q15M PRN IM DECREASED GLUCOSE; Start 11/30/18 at 09:30 Glucose (Glutose) 15 gm Q15M PRN BUCCAL DECREASED GLUCOSE; Start 11/30/18 at 09:30 Atorvastatin Calcium (Lipitor) 10 mg DAILY@21 PO ; Start 11/30/18 at 21:00 Acetaminophen/ Butalbital/ Caffeine (Fioricet) 1 tab Q6H PRN PO PAIN (HEADACHE); Start 11/30/18 at 11:00 Insulin Glargine (Lantus) 9 units DAILY@2000 SC ; Start 11/30/18 at 20:00 Insulin Aspart (Novolog Insulin Pen) 3 unit WITH MEALS SC Last administered on 11/30/18at 12:03; Admin Dose 3 UNIT; Start 11/30/18 at 11:50 Naproxen (Naprosyn) 500 mg BID PO ; Start 11/30/18 at 12:30 Pantoprazole (Protonix Tab) 40 mg DAILY@06 PO ; Start 12/01/18 at 06:00 Allergies: Coded Allergies: ranitidine (Unverified Allergy, Unknown, RASH, 11/30/18) Past Surgical History reviewed Past Surgical Hx: other Social History reviewed Alcohol Use: none Smoking Status: Never smoker Drug Use: none RIKY GAR NP November 30, 2018 13:23
[2018-11-30] MEDS: NAPROXEN 500 MG TAB PO SCH ×2 (13:43→21:30)
--- NOTE | 2018-11-30 14:02 | RADRPT ---
Echocardiogram Report Patient Name: FRED GARCIAPatient ID: [id number] : 1965 (53y 10m)Study Date: 11/30/2018 10:39:01 AM Gender: FAccession #: [id number] Tech: Daisha [facility] Location: [id number] Ref.Physician: BOYD ELIZONDO Height(Cm): BSA: Weight(Kg): Quality: AdequateOrder Physician: BOYD ELIZONDO Account #: Procedures: Echocardiographic Report: Transthoracic echocardiogram with complete 2D, M-Mode, and doppler examination. Indications: Stroke w/ bubble study. Measurements: 2D/M Mode Doppler Measurement Value Normal Range Measurement Value Normal Range LVIDd 2D 3.7 [ 3.8 - 5.2 ] cm AV Peak Guille 1.1 [ 100.0 - 170.0 ] cm/sec LVIDs 2D 2.5 [ 2.2 - 3.5 ] cm AV Peak PG 5.0 [ 2.0 - 9.0 ] mmHg LVPWd 2D 0.7 [ 0.6 - 0.9 ] cm LVOT Peak Guille 0.8 [ 70.0 - 110.0 ] cm/sec IVSd 2D 1.2 [ 0.6 - 0.9 ] cm LVOT Peak PG 3.0 [ 2.0 - 6.0 ] mmHg AoR Diam 2D 2.5 [ 2.3 - 3.1 ] cm MV E Peak Guille 0.8 [ 60.0 - 130.0 ] cm/sec EDV 2D 57.8 [ 46.0 - 106.0 ] ml MV A Peak Guille 0.6 [ 100.0 - 120.0 ] cm/sec ESV 2D 21.4 [ 14.0 - 42.0 ] ml MV E/A 1.2 [ 0.8 - 1.5 ] ratio EF 2D 63.0 [ 54.0 - 74.0 ] percent MV Decel Time 208 [ 104 - 258 ] msec LA Dimen 2D 3.0 [ 2.7 - 3.8 ] cm Lat E` Guille 0.1 [ 10.0 - 15.0 ] cm/sec Lateral E/E` 5.8 [ 1.0 - 2.0 ] ratio MV E/A 1.2 [ 0.8 - 1.5 ] ratio TR Peak Guille 2.3 [ 100.0 - 280.0 ] cm/sec TR Peak PG 21.0 mmHg RVSP 24.0 [ 10.0 - 36.0 ] mmHg Findings: Left Ventricle: Normal left ventricular systolic function. Normal left ventricular cavity size. Mild asymmetric septal hypertrophy. Ejection fraction is visually estimated at 65 %. Tissue Doppler/Mitral Doppler indices are consistent with pseudonormalization with mildly elevated left atrial pressure (Stage II diastolic dysfunction). Right Ventricle: Normal right ventricular size. Normal right ventricular systolic function. Left Atrium: The left atrium is normal in size. Right Atrium: The right atrium is normal in size. Atrial Septum: Bubble study was performed with and with out valsalva. There is evidence of right to left shunting with valsalva. Mitral Valve: Mild mitral leaflet calcification. Mild mitral annular calcification. Trace mitral regurgitation. Aortic Valve: No hemodynamically significant aortic stenosis by doppler. Aortic cusps appear mildly calcified. Tricuspid Valve: Normal appearance of the tricuspid valve. The estimated Peak RVSP is 24 mmHg. There is trace tricuspid regurgitation. Pericardium: Normal pericardium with no significant pericardial effusion. Aorta: Normal aortic root. IVC: Normal size and normal respiratory collapse consistent with normal right atrial pressure. Conclusions: Normal left ventricular systolic function. Normal left ventricular cavity size. Mild asymmetric septal hypertrophy. Ejection fraction is visually estimated at 65 %. Tissue Doppler/Mitral Doppler indices are consistent with pseudonormalization with mildly elevated left atrial pressure (Stage II diastolic dysfunction). Normal right ventricular size. Normal right ventricular systolic function. The left atrium is normal in size. The right atrium is normal in size. No significant valvular stenosis or regurgitation seen. Normal pericardium with no significant pericardial effusion. Bubble study was performed with and with out valsalva. There is evidence of right to left shunting with valsalva. Electronically Signed By: Tony Johnson 2018-11-30 14:00:58 PDT
[2018-11-30] MEDS ORDERED: INSULIN GLARGINE [LANTus] (100 UNITS/ML) SYG SC SCH (20:00)
[2018-11-30] MEDS ORDERED: SIMVASTATIN 20 MG PO SCH (21:00)
[2018-11-30] MEDS ORDERED: ATORVASTATIN 10 MG TAB PO SCH (21:00)
[2018-12-01] VITALS (8 sets, daily range): BP systolic 120–140; BP diastolic 63–81; PULSE 56–75; RESP 17–20
[2018-12-01] MEDS ORDERED: ACCU-CHEK XX SCH (02:00)
[2018-12-01] MEDS ORDERED: PANTOPRAZOLE (EC) 40 MG TAB PO SCH (06:00)
[2018-12-01] MEDS: NAPROXEN 500 MG TAB PO SCH (08:38)
[2018-12-01] MEDS: ASPIRIN 81 MG TAB PO SCH (08:38)
[2018-12-01] MEDS: INSULIN ASPART [NOVOLOG] 3 ML PEN SC SCH ×6 (08:42→17:15)
--- NOTE | 2018-12-01 09:32 | PN ---
Date/Time of Note Date/Time of Note DATE: 12/01/18 TIME: 09:31 Assessment/Plan VTE Prophylaxis Risk score (from Ns)>0 risk: 1 SCD applied (from Ns): Yes Pharmacological prophylaxis: NA/contraindicated Pharm contraindication: low risk/ambulating Lines/Catheters IV [facility] [place] [facility] Urinary Cath still in place: No Assessment/Plan Hospital Course SUBJECTIVE: Continues to complain of left-sided numbness and occipital head ache. OBJECTIVE: Physical Exam General: Adequately build 53 year-old female lying in bed in no apparent distress. HEENT: Normocephalic, atraumatic. Eyes: Anicteric sclerae, conjunctivae clear. ENT: Nasal septum midline, oral mucosa moist. Neck supple, no JVD noticed. Respiratory: Bilaterally clear breath sounds. No use of accessory muscles of respiration. No adventitious breath sounds. Cardiovascular: S1, S2 heard. No murmurs or gallops. Abdomen: Soft, nontender, and nondistended. Bowel sounds positive in all 4 quadrants. Genitourinary: Deferred. Extremities: No cyanosis, no clubbing, no edema. Peripheral pulses palpable. Neurologic: The patient is awake, alert, and oriented. Decreased sensation on the left side of face, left upper extremity, and left lower extremity. Skin: Normal skin turgor. No skin rashes. Labs & Vitals per chart ASSESSMENT & PLAN 53-year-old female with comorbidities including diabetes mellitus, hypertension, dyslipidemia who came to the emergency room with chief complaint of left upper extremity, left lower extremity, and facial numbness, and headache, was admitted to inpatient setting for further treatment and evaluation. 1. Left sided numbness with associated headache. -Etiology unclear. -Brain MRI pending. Brain CT scan negative. -Continue aspirin and statins. -Neurology evaluation. -Echo with bubble study showing evidence of left to right shunting. Cardiology has been consulted. 2. Essential hypertension. -Permissive hypertension for suspected stroke. 3. Diabetes mellitus type 2. -Hemoglobin A1c 9.7. -Continue sliding scale insulin with basal insulin and pre-meal insulin. 4. Dyslipidemia. -Continue statins. 5. Fluids, electrolytes, and nutrition. -Carbohydrate controlled diet. 6. DVT prophylaxis. -Bilateral SCDs. 7. Plan. -Continue aspirin plus statin. -Await further recommendations from consultants. -Await brain MRI. The patient was seen in collaboration with Dr. Nava. Result Diagram: 11/30/18 0547 11/30/18 0547 Results 24hrs Laboratory Tests Test 11/30/18 11:52 11/30/18 16:46 11/30/18 21:33 12/01/18 02:08 Bedside Glucose 269 H 131 298 H 270 H Test 12/01/18 08:15 Bedside Glucose 227 H Exam/Review of Systems Exam Vitals Vital Signs Date Temp Pulse Resp B/P (MAP) Pulse Ox O2 O2 Flow FiO2 Time Delivery Rate 12/01/18 97.6 57 19 120/80 97 07:20 (93) 11/30/18 Room Air 02:54 Intake and Output 11/30/18 11/30/18 12/01/18 1515:00 23:00 07:00 IntakeIntake Total 500 ml BalanceBalance 500 ml Results Results 24hrs Laboratory Tests Test 11/30/18 11:52 11/30/18 16:46 11/30/18 21:33 12/01/18 02:08 Bedside Glucose 269 H 131 298 H 270 H Test 12/01/18 08:15 Bedside Glucose 227 H Medications Medication Current Medications IV Flush (NS 3 ml) 3 ml PER PROTOCOL IV ; Start 11/29/18 at 21:30 Ondansetron HCl (Zofran Inj) 4 mg Q6H PRN IV NAUSEA/VOMITING; Start 11/29/18 at 21:30 Aspirin (Aspirin) 81 mg DAILY PO Last administered on 12/01/18at 08:38; Admin Dose 81 MG; Start 11/30/18 at 09:00 Acetaminophen (Tylenol Tab) 650 mg Q6H PRN PO .PAIN 1-3 OR TEMP; Start 11/29/18 at 21:30 Docusate Sodium (Colace) 100 mg Q12H PRN PO .CONSTIPATION Last administered on 12/01/18at 08:44; Admin Dose 100 MG; Start 11/29/18 at 21:30 Bisacodyl (Dulcolax) 5 mg DAILY PRN PO .CONSTIPATION; Start 11/29/18 at 21:30 Hydralazine HCl (Apresoline) 10 mg Q4H PRN IV ELEVATED BLOOD PRESSURE; Start 11/29/18 at 21:30 Ketorolac Tromethamine (Toradol) 15 mg Q6H PRN IV PAIN; Start 11/30/18 at 06:03; Stop 12/03/18 at 06:02 Diagnostic Test (Pha) (Accu-Chek) 1 ea 02 XX ; Start 12/01/18 at 02:00 Insulin Aspart (Novolog Insulin Pen) NOVOLOG *MILD* ALGORITHM WITH MEALS BEDTIME SC Last administered on 12/01/18at 08:48; Admin Dose 3 UNIT; Start 11/30/18 at 11:50 Miscellaneous Information 1 ea NOTE XX ; Start 11/30/18 at 09:30 Glucose (Glutose) 15 gm Q15M PRN PO DECREASED GLUCOSE; Start 11/30/18 at 09:30 Glucose (Glutose) 22.5 gm Q15M PRN PO DECREASED GLUCOSE; Start 11/30/18 at 09:30 Dextrose (D50w Syringe) 25 ml Q15M PRN IV DECREASED GLUCOSE; Start 11/30/18 at 09:30 Dextrose (D50w Syringe) 50 ml Q15M PRN IV DECREASED GLUCOSE; Start 11/30/18 at 09:30 Glucagon (Glucagen) 1 mg Q15M PRN IM DECREASED GLUCOSE; Start 11/30/18 at 09:30 Glucose (Glutose) 15 gm Q15M PRN BUCCAL DECREASED GLUCOSE; Start 11/30/18 at 09:30 Atorvastatin Calcium (Lipitor) 10 mg DAILY@21 PO Last administered on 11/30/18at 21:30; Admin Dose 10 MG; Start 11/30/18 at 21:00 Acetaminophen/ Butalbital/ Caffeine (Fioricet) 1 tab Q6H PRN PO PAIN (HEADACHE); Start 11/30/18 at 11:00 Insulin Glargine (Lantus) 9 units DAILY@2000 SC Last administered on 11/30/18at 22:09; Admin Dose 9 UNITS; Start 11/30/18 at 20:00 Insulin Aspart (Novolog Insulin Pen) 3 unit WITH MEALS SC Last administered on 12/01/18at 08:42; Admin Dose 3 UNIT; Start 11/30/18 at 11:50 Naproxen (Naprosyn) 500 mg BID PO Last administered on 12/01/18at 08:38; Admin Dose 500 MG; Start 11/30/18 at 12:30 Pantoprazole (Protonix Tab) 40 mg DAILY@06 PO Last administered on 12/01/18at 06:10; Admin Dose 40 MG; Start 12/01/18 at 06:00 ABIMBOLA FINK NP Dec 01, 2018 09:32
--- NOTE | 2018-12-01 10:27 | CONS ---
Assessment/Plan Assessment/Plan Assessment/Plan (Daily) Headache with Numbness of the Arm PFO with R>L shunting HTN OOC DM -continue asa/statin -neurology involved -no anticoagulation at this time and will await neuro input re: addtion of plavix or not at this time -bp/dm management -MRI pending Consultation Date/Type/Reason Admit Date/Time Type of Consult Cardiology Date/Time of Note DATE: 12/01/18 TIME: 10:24 Hx of Present Illness Patient is a 53-year-old female with hypertension, diabetes, and high cholesterol who presents with headache. She had a headache which started on Monday. She felt hot in the head and the face. Today she started with left leg, left arm, and left facial numbness. She was seen on November 25 and was discharged from the emergency department that day. She has had no treatment as of yet. The symptoms have been constant. Upon review of old medical records the patient has multiple visits for various complaints. The patient does not remember the name of the primary doctor. Past Medical History Home Meds Active Scripts Baclofen* (Baclofen*) 10 Mg Tablet, 10 MG PO TID, #15 TAB Prov:VISHAL JULIAN PA-C 11/25/18 Ibuprofen* (Motrin*) 600 Mg Tab, 600 MG PO Q6, #30 TAB Prov:VISHAL JULIAN PA-C 11/25/18 Reported Medications [Simvastatin] 20MG TAB No Conflict Check, 20 MG PO QHS 09/14/18 Metformin Hcl* (Metformin Hcl*) 1,000 Mg Tablet, 1000 MG PO WITH BREAKFAST DINNE, #60 TAB 12/15/17 Glipizide* (Glipizide*) 10 Mg Tablet, 10 MG PO AC BREAKFAST DINNER, TAB 12/15/17 Discontinued Reported Medications [Bp Med] No Conflict Check, PO 09/14/18 Medications Current Medications IV Flush (NS 3 ml) 3 ml PER PROTOCOL IV ; Start 11/29/18 at 21:30 Ondansetron HCl (Zofran Inj) 4 mg Q6H PRN IV NAUSEA/VOMITING; Start 11/29/18 at 21:30 Aspirin (Aspirin) 81 mg DAILY PO Last administered on 12/01/18at 08:38; Admin Dose 81 MG; Start 11/30/18 at 09:00 Acetaminophen (Tylenol Tab) 650 mg Q6H PRN PO .PAIN 1-3 OR TEMP; Start 11/29/18 at 21:30 Docusate Sodium (Colace) 100 mg Q12H PRN PO .CONSTIPATION Last administered on 12/01/18at 08:44; Admin Dose 100 MG; Start 11/29/18 at 21:30 Bisacodyl (Dulcolax) 5 mg DAILY PRN PO .CONSTIPATION; Start 11/29/18 at 21:30 Hydralazine HCl (Apresoline) 10 mg Q4H PRN IV ELEVATED BLOOD PRESSURE; Start 11/29/18 at 21:30 Ketorolac Tromethamine (Toradol) 15 mg Q6H PRN IV PAIN; Start 11/30/18 at 06:03; Stop 12/03/18 at 06:02 Diagnostic Test (Pha) (Accu-Chek) 1 ea 02 XX ; Start 12/01/18 at 02:00 Insulin Aspart (Novolog Insulin Pen) NOVOLOG *MILD* ALGORITHM WITH MEALS BEDTIME SC Last administered on 12/01/18at 08:48; Admin Dose 3 UNIT; Start 11/30/18 at 11:50 Miscellaneous Information 1 ea NOTE XX ; Start 11/30/18 at 09:30 Glucose (Glutose) 15 gm Q15M PRN PO DECREASED GLUCOSE; Start 11/30/18 at 09:30 Glucose (Glutose) 22.5 gm Q15M PRN PO DECREASED GLUCOSE; Start 11/30/18 at 09:30 Dextrose (D50w Syringe) 25 ml Q15M PRN IV DECREASED GLUCOSE; Start 11/30/18 at 09:30 Dextrose (D50w Syringe) 50 ml Q15M PRN IV DECREASED GLUCOSE; Start 11/30/18 at 09:30 Glucagon (Glucagen) 1 mg Q15M PRN IM DECREASED GLUCOSE; Start 11/30/18 at 09:30 Glucose (Glutose) 15 gm Q15M PRN BUCCAL DECREASED GLUCOSE; Start 11/30/18 at 09:30 Atorvastatin Calcium (Lipitor) 10 mg DAILY@21 PO Last administered on 11/30/18at 21:30; Admin Dose 10 MG; Start 11/30/18 at 21:00 Acetaminophen/ Butalbital/ Caffeine (Fioricet) 1 tab Q6H PRN PO PAIN (HEADACHE); Start 11/30/18 at 11:00 Naproxen (Naprosyn) 500 mg BID PO Last administered on 12/01/18at 08:38; Admin Dose 500 MG; Start 11/30/18 at 12:30 Pantoprazole (Protonix Tab) 40 mg DAILY@06 PO Last administered on 12/01/18at 06:10; Admin Dose 40 MG; Start 12/01/18 at 06:00 Insulin Aspart (Novolog Insulin Pen) 4 unit WITH MEALS SC ; Start 12/01/18 at 11:50 Insulin Glargine (Lantus) 12 units DAILY@2000 SC ; Start 12/01/18 at 20:00 Allergies: Coded Allergies: ranitidine (Unverified Allergy, Unknown, RASH, 11/30/18) Past Surgical History Past Surgical Hx: other Social History Alcohol Use: none Smoking Status: Never smoker Drug Use: none Exam/Review of Systems Vital Signs Vitals Vital Signs Date Temp Pulse Resp B/P (MAP) Pulse Ox O2 O2 Flow FiO2 Time Delivery Rate 12/01/18 97.6 57 19 120/80 97 07:20 (93) 11/30/18 Room Air 02:54 Intake and Output 11/30/18 11/30/18 12/01/18 1515:00 23:00 07:00 IntakeIntake Total 500 ml BalanceBalance 500 ml Labs Result Diagram: 11/30/18 0547 11/30/18 0547 Results 24hrs Laboratory Tests Test 11/30/18 11:52 11/30/18 16:46 11/30/18 21:33 12/01/18 02:08 Bedside Glucose 269 H 131 298 H 270 H Test 12/01/18 08:15 Bedside Glucose 227 H Medications Medications Current Medications IV Flush (NS 3 ml) 3 ml PER PROTOCOL IV ; Start 11/29/18 at 21:30 Ondansetron HCl (Zofran Inj) 4 mg Q6H PRN IV NAUSEA/VOMITING; Start 11/29/18 at 21:30 Aspirin (Aspirin) 81 mg DAILY PO Last administered on 12/01/18at 08:38; Admin Dose 81 MG; Start 11/30/18 at 09:00 Acetaminophen (Tylenol Tab) 650 mg Q6H PRN PO .PAIN 1-3 OR TEMP; Start 11/29/18 at 21:30 Docusate Sodium (Colace) 100 mg Q12H PRN PO .CONSTIPATION Last administered on 12/01/18at 08:44; Admin Dose 100 MG; Start 11/29/18 at 21:30 Bisacodyl (Dulcolax) 5 mg DAILY PRN PO .CONSTIPATION; Start 11/29/18 at 21:30 Hydralazine HCl (Apresoline) 10 mg Q4H PRN IV ELEVATED BLOOD PRESSURE; Start 11/29/18 at 21:30 Ketorolac Tromethamine (Toradol) 15 mg Q6H PRN IV PAIN; Start 11/30/18 at 06:03; Stop 12/03/18 at 06:02 Diagnostic Test (Pha) (Accu-Chek) 1 ea 02 XX ; Start 12/01/18 at 02:00 Insulin Aspart (Novolog Insulin Pen) NOVOLOG *MILD* ALGORITHM WITH MEALS BEDTIME SC Last administered on 12/01/18at 08:48; Admin Dose 3 UNIT; Start 11/30/18 at 11:50 Miscellaneous Information 1 ea NOTE XX ; Start 11/30/18 at 09:30 Glucose (Glutose) 15 gm Q15M PRN PO DECREASED GLUCOSE; Start 11/30/18 at 09:30 Glucose (Glutose) 22.5 gm Q15M PRN PO DECREASED GLUCOSE; Start 11/30/18 at 09:30 Dextrose (D50w Syringe) 25 ml Q15M PRN IV DECREASED GLUCOSE; Start 11/30/18 at 09:30 Dextrose (D50w Syringe) 50 ml Q15M PRN IV DECREASED GLUCOSE; Start 11/30/18 at 09:30 Glucagon (Glucagen) 1 mg Q15M PRN IM DECREASED GLUCOSE; Start 11/30/18 at 09:30 Glucose (Glutose) 15 gm Q15M PRN BUCCAL DECREASED GLUCOSE; Start 11/30/18 at 09:30 Atorvastatin Calcium (Lipitor) 10 mg DAILY@21 PO Last administered on 11/30/18at 21:30; Admin Dose 10 MG; Start 11/30/18 at 21:00 Acetaminophen/ Butalbital/ Caffeine (Fioricet) 1 tab Q6H PRN PO PAIN (HEA DACHE); Start 11/30/18 at 11:00 Naproxen (Naprosyn) 500 mg BID PO Last administered on 12/01/18at 08:38; Admin Dose 500 MG; Start 11/30/18 at 12:30 Pantoprazole (Protonix Tab) 40 mg DAILY@06 PO Last administered on 12/01/18at 06:10; Admin Dose 40 MG; Start 12/01/18 at 06:00 Insulin Aspart (Novolog Insulin Pen) 4 unit WITH MEALS SC ; Start 12/01/18 at 11:50 Insulin Glargine (Lantus) 12 units DAILY@2000 SC ; Start 12/01/18 at 20:00 LUCA OWUSU MD Dec 01, 2018 10:27
[2018-12-01] MEDS ORDERED: METF100010 PO (16:59)
[2018-12-01] MEDS ORDERED: ASPI-831 PO (16:59)
--- NOTE | 2018-12-01 17:04 | PDOCDIS ---
Discharge Instructions CONDITION Ilsuy5Ha Patient Condition: [id number] Stable HOME CARE INSTRUCTIONS: [id number] Diet Instructions: Ufezx5e Low Fat /Cholesterol [id number] Special Diet: [id number] Carbohydrate controlled FOLLOW UP/APPOINTMENTS Follow-up Plan Please follow-up with your PCP in 1 week. Have your PCP arrange for outpatient neurology follow-up. OTHER ORDERS: Other Orders: 1. Resume home medications. Please start taking Metformin only from 12/03/2018 evening dose because of the IV dye used for MRA. 2. Resume activities as tolerated. 3. Follow a low cholesterol, low carbohydrate diet. 4. Please follow-up with your PCP in 1 week. Have your PCP arrange for outpatient neurology follow-up. 5. Please go to the nearest ER if you have any sudden onset of focal weakness, speech disturbances, or any other unusual signs/symptoms. ABIMBOLA FINK NP Dec 01, 2018 17:04
--- NOTE | 2018-12-01 17:29 | DS ---
Date/Time of Note Date/Time of Note DATE: 12/01/18 TIME: 17:26 Discharge Summary Admission/Discharge Info Admit Date/Time November 29, 2018 at 21:04 Discharge Date/Time Discharge Diagnosis 1. Suspect complex migraine. 2. Diabetes mellitus type 2. Hemoglobin A1c 9.7. 3. Dyslipidemia. Patient Condition: Fair Consults 1. Rossy Edwards MD, Neurology. 2. Caity Sanchez MD, Cardiology. Procedures Brain MRI IMPRESSION: 1. No acute infarction or intracranial hemorrhage. 2. Minimal generalized cerebral volume loss. 3. A few bilateral subcortical T2 hyperintensities which are nonspecific but may be related to sequelae of migraines, prior trauma, prior infectious/inflammatory etiologies or early chronic microvascular ischemic changes. Brain MRA IMPRESSION: Evaluation is mildly limited due to motion degradation. 1. No evidence of aneurysm or intracranial stenosis. 2D Echocardiogram Conclusions: Normal left ventricular systolic function. Normal left ventricular cavity size. Mild asymmetric septal hypertrophy. Ejection fraction is visually estimated at 65 %. Tissue Doppler/Mitral Doppler indices are consistent with pseudonormalization with mildly elevated left atrial pressure (Stage II diastolic dysfunction). Normal right ventricular size. Normal right ventricular systolic function. The left atrium is normal in size. The right atrium is normal in size. No significant valvular stenosis or regurgitation seen. Normal pericardium with no significant pericardial effusion. Bubble study was performed with and with out Valsalva. There is evidence of right to left shunting with Valsalva. Hx of Present Illness This is a 53-year-old female with comorbidities including diabetes mellitus, hypertension, dyslipidemia who came to the emergency room with chief complaint of left upper extremity, left lower extremity, and facial numbness, and headache, was admitted to inpatient setting for further treatment and evaluation. Hospital Course The patient's brain CT scan was negative. A neurology consult was obtained. The patient was started on aspirin and statins. The patient underwent a brain MRI that was negative for any acute stroke. MRA was negative for any aneurysm or intracranial stenosis. Cervical spine MRI was showing mild degenerative changes without nerve root impingement. Neck MRA was negative for any carotid artery stenosis. However, the patient's brain MRI revealed few bilateral subcortical T2 hyperintensities which may be related to sequelae of migraines, prior trauma, parietal infectious/inflammatory etiologies or early chronic microvascular ischemic changes. The patient's symptomatology was consistent with a complex migraine. The patient was provided with adequate pain control. The patient did not want to wait before she was initiated on migraine specific therapy including any beta-blockers or Topamax. Therefore, the patient was discharged home to be followed up with outpatient neurology at the earliest. The patient was also evaluated by physical therapy, speech therapy, and Occupational Therapy. The patient was incidentally found to have evidence of right to right left shunting with Valsalva on a bubble study. The patient was also evaluated by cardiology, who recommended continuing aspirin and statins. Therefore, upon discharge the patient will be continued on aspirin and statins. The patient also has underlying dyslipidemia and she has been taking statins at home. She has underlying diabetes mellitus with a hemoglobin A1c of 9.7. She was maintained on sliding scale insulin along with pre-meal insulin and basal insulin. Upon discharge, she was instructed to take metformin only 48 hours after the use of IV dye for the brain MRA. Etiology of the patient's symptomatology remains unclear. However, may be secondary to complex migraines and needs outpatient neurology evaluation. Discharge Instructions 1. Resume home medications. Please start taking Metformin only from 12/03/2018 evening dose because of the IV dye used for MRA. 2. Resume activities as tolerated. 3. Follow a low cholesterol, low carbohydrate diet. 4. Please follow-up with your PCP in 1 week. Have your PCP arrange for outpatient neurology follow-up. 5. Please go to the nearest ER if you have any sudden onset of focal weakness, speech disturbances, or any other unusual signs/symptoms. The patient verbalized understanding of her discharge instructions. At this time I would like to thank all the consultants for seeing the patient and providing clinical recommendations. The patient was seen in collaboration with Dr. Nava. Home Meds Active Scripts Aspirin (Aspirin) 81 Mg Chew, 81 MG PO DAILY, #30 TAB Prov:ABIMBOLA FINK NP 12/01/18 Metformin Hcl* (Metformin Hcl*) 1,000 Mg Tablet, 1000 MG PO WITH BREAKFAST DINNE, #60 TAB Please start taking only from 12/03/2018 evening dose because of the IV dye used for MRA. Prov:ABIMBOLA FINK PIPE CAULKER 12/01/18 Baclofen* (Baclofen*) 10 Mg Tablet, 10 MG PO TID, #15 TAB Prov:VISHAL JULIAN PA-C 11/25/18 Ibuprofen* (Motrin*) 600 Mg Tab, 600 MG PO Q6, #30 TAB Prov:VISHAL JULIAN PA-C 11/25/18 Reported Medications [Simvastatin] 20MG TAB No Conflict Check, 20 MG PO QHS 09/14/18 Glipizide* (Glipizide*) 10 Mg Tablet, 10 MG PO AC BREAKFAST DINNER, TAB 12/15/17 Discontinued Reported Medications [Bp Med] No Conflict Check, PO 09/14/18 Follow-up Plan Please follow-up with your PCP in 1 week. Have your PCP arrange for outpatient neurology follow-up. Primary Care Provider Not On Staff Doctor Time spent on discharge: > 30 minutes Pending Labs Laboratory Tests Test 11/30/18 21:33 12/01/18 02:08 12/01/18 08:15 12/01/18 13:01 Bedside 298 270 227 191 Glucose mg/dL (70-220) mg/dL (70-220) mg/dL (70-220) mg/dL (70-220) Test 12/01/18 14:57 12/01/18 16:54 White Blood 5.0 Count 10^3/ul (4.8-10 .8) Red Blood 4.69 Count 10^6/ul (4.20-5 .40) Hemoglobin 13.7 g/dl (12.0-16.0 ) Hematocrit 41.4 % (37.0-47.0) Mean 88.3 Corpuscular fl (82.0-101.0) Volume Mean 29.2 Corpuscular pg (29.0-33.0) Hemoglobin Mean 33.1 Corpuscular g/dl (32.0-37.0 Hemoglobin Conc ) ent Red Cell 11.9 Distribution % (11.5-14.5) Width Platelet Count 230 10^3/UL (140-41 5) Mean Platelet 10.1 Volume fl (7.4-10.4) Immature 0.200 Granulocytes % % (0.001-0.429) Neutrophils % 63.1 % (39.0-77.0) Lymphocytes % 26.3 % (15.0-51.0) Monocytes % 7.0 % (0.0-11.0) Eosinophils % 3.0 % (0.0-7.0) Basophils % 0.4 % (0.0-2.0) Nucleated Red 0.0 Blood Cells % /100WBC (0.0-0. 0) Immature 0.010 Granulocytes # 10^3/ul (0.0-0. 031) Neutrophils # 3.2 10^3/ul (1.6-7. 5) Lymphocytes # 1.3 10^3/ul (0.8-2. 9) Monocytes # 0.4 10^3/ul (0.3-0. 9) Eosinophils # 0.2 10^3/ul (0.0-0. 5) Basophils # 0.0 10^3/ul (0.0-0. 1) Nucleated Red 0.0 Blood Cells # 10^3/ul (0.0-0. 0) Magnesium 1.9 Level mg/dl (1.7-2.5) Bedside 229 Glucose mg/dL (70-220) ABIMBOLA FINK NP Dec 01, 2018 17:29
[2018-12-01] MEDS ORDERED: INSULIN GLARGINE [LANTus] (100 UNITS/ML) SYG SC SCH (20:00)
[2018-12-01] MEDS ORDERED: TOPIRAMATE 25 MG TAB PO SCH (21:00)
== END 2018-12-01 17:49 | disposition home or self-care (01) | DRG 103 ==
LOC: E/R 18:11 → TEL 21:04
PROVIDERS: ADMIT Family Medicine; ATTEND Family Medicine
DX: G43.809 Other migraine, not intractable, without status migrainosus (principal); Q21.1 Atrial septal defect; I10 Essential (primary) hypertension; E11.9 Type 2 diabetes mellitus without complications; E78.00 Pure hypercholesterolemia, unspecified; Z79.84 Long term (current) use of oral hypoglycemic drugs
CPT/HCPCS: 36415; 70450; 70544; 70549; 70551; 71045; 72141; 80048; 80053; 80061; 80307; 81003; 82962; 83036; 83735; 84443; 84484; 85025; 85610; 85651; 85730; 86592; 92610; 93005; 93306; 97161; 97167; J1815; J1885

== ENCOUNTER 2018-12-16 18:13 | Emergency (ER) | payer OTHER ==
[~2018-12-16] VITALS: Ht 157.5 cm; Wt 56.4 kg
[~2018-12-16 18:13] MED LIST changes: +ASPI-831 PO; -BP MED PO
[2018-12-16 18:45] VITALS: Ht 157.5 cm; Wt 56.4 kg
--- NOTE | 2018-12-16 20:08 | ERD ---
ER Documentation Chief Complaint Chief Complaint painful urination x 1 week HPI 53-year-old female with past medical history of diabetes type 2, hypertension, hyperlipidemia who presents with complaint of dysuria over the past week. Also with complaint of mild right-sided pelvic pain as well as pain of the flank on the right side. States she has a problem history of frequent UTIs. Eyes vaginal bleeding, vaginal discharge, vaginal ulcers or irritation, fevers, chills, nausea, vomiting, diarrhea. Reports she is sexually active with a condom use. Otherwise without complaint and at the time of examination nontoxic-appearing with normal triage vital signs. ROS All systems reviewed and are negative except as per history of present illness. Medications Home Meds Active Scripts Aspirin (Aspirin) 81 Mg Chew, 81 MG PO DAILY, #30 TAB Prov:ABIMBOLA FINK NP 12/01/18 Metformin Hcl* (Metformin Hcl*) 1,000 Mg Tablet, 1000 MG PO WITH BREAKFAST DINNE, #60 TAB Please start taking only from 12/03/2018 evening dose because of the IV dye used for MRA. Prov:ABIMBOLA FINK NP 12/01/18 Baclofen* (Baclofen*) 10 Mg Tablet, 10 MG PO TID, #15 TAB Prov:VISHAL JULIAN PA-C 11/25/18 Ibuprofen* (Motrin*) 600 Mg Tab, 600 MG PO Q6, #30 TAB Prov:VISHAL JULIAN PA-C 11/25/18 Reported Medications [Simvastatin] 20MG TAB No Conflict Check, 20 MG PO QHS 09/14/18 Glipizide* (Glipizide*) 10 Mg Tablet, 10 MG PO AC BREAKFAST DINNER, TAB 12/15/17 Allergies Allergies: Coded Allergies: ranitidine (Unverified Allergy, Unknown, RASH, 11/30/18) PMhx/Soc History of Surgery: Yes (2 ) Anesthesia Reaction: No Hx Neurological Disorder: Yes (stroke) Hx Respiratory Disorders: No Hx Cardiac Disorders: Yes (HTN) Hx Psychiatric Problems: No Hx Miscellaneous Medical Probl: Yes (DM, HTN, hyperlipidemia) Hx Alcohol Use: No Hx Substance Use: No Hx Tobacco Use: No Smoking Status: Never smoker FmHx Family History: diabetes Physical Exam Vitals Vital Signs Date Temp Pulse Resp B/P (MAP) Pulse Ox O2 O2 Flow FiO2 Time Delivery Rate 12/16/18 98.2 77 20 139/81 99 18:45 (100) Physical Exam I have reviewed the triage vital signs. Const: Well nourished, well developed, appears stated age Eyes: PERRL, no conjunctival injection HENT: NCAT, Neck supple without meningismus CV: RRR, Warm, well-perfused extremities RESP: CTAB, Unlabored respiratory effort GI: soft, non-tender, non-distended, no masses, nontender to flank bilaterally MSK: No gross deformities appreciated Skin: Warm, dry. No rashes Neuro: grossly non focal Psych: Appropriate mood and affect. Results 24 hrs Laboratory Tests Test 12/16/18 19:49 Urine Color YELLOW Urine Clarity CLEAR Urine pH 5.0 Urine Specific [place] 1.020 Urine Ketones NEGATIVE mg/dL Urine Nitrite NEGATIVE mg/dL Urine Bilirubin NEGATIVE mg/dL Urine Urobilinogen NEGATIVE mg/dL Urine Leukocyte Esterase NEGATIVE Bhavik/ul Urine Microscopic RBC 7 /HPF Urine Microscopic WBC 4 /HPF Urine Squamous Epithelial Cells FEW /HPF Urine Bacteria FEW /HPF Urine Hemoglobin 1+ mg/dL Urine Glucose NEGATIVE mg/dL Urine Total Protein NEGATIVE mg/dl Procedures/MDM 53-year-old female presents with complaint of dysuria. Not . Unlikely TOA, Ovarian Torsion, PID, gonorrhea/chlamydia. Low suspicion for Infected Urolithiasis, AAA, Cholecystitis, Pancreatitis, SBO, Appendicitis, or other acute abdomen. ED course: UA unremarkable without convincing infection Disposition: Discharge home. SRP discussed. Advise follow up with primary care provider within 24-72 hours. DISPOSITION PLAN: We discussed follow up with the patient's primary care doctor within 24 to 48 hours. Patient counseled regarding my diagnostic impression and care plan. Prior to discharge all questions answered. Pt agrees with treatment plan and understands strict return precautions. Precautionary instructions provided including instructions to return to the ER if not improving or for any worsening or changing symptoms or concerns. Disclaimer: Inadvertent spelling and grammatical errors are likely due to [employer] R/dictation software use and do not reflect on the overall quality of patient care. Also, please note that the electronic time recorded on this note does not necessarily reflect the actual time of the patient encounter. Departure Diagnosis: Primary Impression: Genitourinary symptoms Condition: Stable Patient Instructions: Dysuria, Uncertain Cause (Adult) Referrals: COMMUNITY CLINICS YOU HAVE RECEIVED A MEDICAL SCREENING EXAM AND THE RESULTS INDICATE THAT YOU DO NOT HAVE A CONDITION THAT REQUIRES URGENT TREATMENT IN THE EMERGENCY DEPARTMENT. FURTHER EVALUATION AND TREATMENT OF YOUR CONDITION CAN WAIT UNTIL YOU ARE SEEN IN YOUR DOCTORS OFFICE WITHIN THE NEXT 1-2 DAYS. IT IS YOUR RESPONSIBILITY TO MAKE AN APPOINTMENT FOR FOLOW-UP CARE. IF YOU HAVE A PRIMARY DOCTOR --you should call your primary doctor and schedule an appointment IF YOU DO NOT HAVE A PRIMARY DOCTOR YOU CAN CALL OUR PHYSICIAN REFERRAL HOTLINE AT IF YOU CAN NOT AFFORD TO SEE A PHYSICIAN YOU CAN CHOSE FROM THE FOLLOWING OUR [facility] CL[facility] [address] [facility]. [facility] [address] [facility] [facility] [address] [facility] [facility] [address] [facility]. [facility] [address] [facility]. [facility] [address] Additional Instructions: Call your primary care doctor TOMORROW for an appointment during the next 2-3 days.See the doctor sooner or return here if your condition worsens before your appointment time. ANA KAUR PA-C Dec 16, 2018 20:08
[2018-12-16 20:14] VITALS: BP 138/77; PULSE 62; RESP 16
== END 2018-12-16 20:14 | disposition home or self-care (01) ==
LOC: FTE 18:13
DX: R30.0 Dysuria (principal); E11.9 Type 2 diabetes mellitus without complications; I10 Essential (primary) hypertension; Z79.82 Long term (current) use of aspirin; Z79.84 Long term (current) use of oral hypoglycemic drugs
CPT/HCPCS: 81001; Z7502; 99283

== ENCOUNTER 2018-12-24 22:25 | Emergency (ER) | payer OTHER ==
[~2018-12-24] VITALS: Ht 157.5 cm; Wt 57.6 kg
[2018-12-24 22:34] VITALS: Ht 157.5 cm; Wt 57.6 kg
[2018-12-24] MEDS ORDERED: PHENAZOPYRIDINE 100 MG TAB PO ONE (23:30)
[2018-12-25] MEDS ORDERED: NITR-58 PO (00:15)
[2018-12-25] MEDS ORDERED: PHEN-717 PO (00:15)
[2018-12-25 00:47] VITALS: BP 128/72; PULSE 77; RESP 16
--- NOTE | 2018-12-27 14:06 | ERD ---
ER Documentation Chief Complaint Chief Complaint dysuria, pelvic pain x 2 weeks HPI 53yo F presents with complaint of dysuria and urgency x 2 weeks. Pt states to have previously presented about a week ago for similar complaint and was told to not have a urinary infection and was d/c with supportive treatment. Pt states symptoms have persisted since that time and are preventing her from sleeping. Pt rates her discomfort as a 5/10. She notes a hx of DM which she admits is not completely under control d/t insurance issues, but denies polydipsia, SOB, diaphoresis, dizziness, CP or other symptoms other than urinary discomfort. ROS All systems reviewed and are negative except as per history of present illness. Medications Home Meds Active Scripts Phenazopyridine Hcl* (Phenazopyridine Hcl*) 200 Mg Tablet, 200 MG PO TID for dysuria, #10 TAB Prov:ANGI BILLINGSLEY PA-C 12/25/18 Nitrofurantoin Monohyd Macrocr* (Macrobid*) 100 Mg Capsr, 100 MG PO HS for 7 Days, #14 CAP Prov:ANGI BILLINGSLEY PA-C 12/25/18 Aspirin (Aspirin) 81 Mg Chew, 81 MG PO DAILY, #30 TAB Prov:ABIMBOLA FINK NP 12/01/18 Metformin Hcl* (Metformin Hcl*) 1,000 Mg Tablet, 1000 MG PO WITH BREAKFAST DINNE, #60 TAB Please start taking only from 12/03/2018 evening dose because of the IV dye used for MRA. Prov:ABIMBOLA FINK NP 12/01/18 Baclofen* (Baclofen*) 10 Mg Tablet, 10 MG PO TID, #15 TAB Prov:VISHAL JULIAN PA-C 11/25/18 Ibuprofen* (Motrin*) 600 Mg Tab, 600 MG PO Q6, #30 TAB Prov:VISHAL JULIAN PA-C 11/25/18 Reported Medications [Simvastatin] 20MG TAB No Conflict Check, 20 MG PO QHS 09/14/18 Glipizide* (Glipizide*) 10 Mg Tablet, 10 MG PO AC BREAKFAST DINNER, TAB 12/15/17 Allergies Allergies: Coded Allergies: ranitidine (Unverified Allergy, Unknown, RASH, 11/30/18) PMhx/Soc History of Surgery: Yes (2 ) Anesthesia Reaction: No Hx Neurological Disorder: Yes (stroke) Hx Respiratory Disorders: No Hx Cardiac Disorders: Yes (HTN, HLD) Hx Psychiatric Problems: No Hx Miscellaneous Medical Probl: Yes Hx Alcohol Use: No Hx Substance Use: No Hx Tobacco Use: No Smoking Status: Never smoker FmHx Family History: diabetes Physical Exam Vitals Vital Signs Date Temp Pulse Resp B/P (MAP) Pulse Ox O2 O2 Flow FiO2 Time Delivery Rate 12/25/18 97.8 77 16 128/72 98 Room Air 00:47 (90) 12/24/18 97.2 83 18 148/70 97 22:34 (96) Physical Exam Gen: Well developed. Well nourished. No acute distress Head/Eyes: Atraumatic. Normocephalic. PERRL. EOMI ENT: Moist mucous membranes. Voice normal. Neck: Supple. No lymphadenopathy Cardio: Regular rate and rhythm. No murmurs, rubs, or gallops. Resp: No respiratory distress. Normal breath sounds. No wheezes, rales, or rhonchi. Abd: Soft. Non-tender. No guarding, rebound, or rigidity. Non-distended. Back: Full ROM, no CVA tenderness Skin: Dry. No rashes. Warm Neurological: Alert and oriented X 3. Normal speech Psychiatric: Normal mood. Normal affect Results 24 hrs Laboratory Tests Test 12/24/18 22:58 12/24/18 23:02 Urine Color YELLOW Urine Clarity SLIGHTLY CLOUDY Urine pH 8.0 Urine Specific Shiloh 1.026 Urine Ketones NEGATIVE mg/dL Urine Nitrite NEGATIVE mg/dL Urine Bilirubin NEGATIVE mg/dL Urine Urobilinogen NEGATIVE mg/dL Urine Leukocyte Esterase NEGATIVE Bhavik/ul Urine Microscopic RBC 1 /HPF Urine Microscopic WBC 1 /HPF Urine Squamous Epithelial Cells FEW /HPF Urine Hemoglobin NEGATIVE mg/dL Urine Glucose 3+ mg/dL Urine Total Protein NEGATIVE mg/dl Bedside Urine pH (LAB) 7.5 Bedside Urine Protein (LAB) Negative Bedside Urine Glucose (UA) 0.50% Bedside Urine Ketones (LAB) Negative Bedside Urine Blood Negative Bedside Urine Nitrite (LAB) Negative Bedside Urine Leukocyte Esterase (L Negative Current Medications Medications Dose Sig/Gabo Start Time Status Last (Trade) Ordered Route PRN Stop Time Admin Dose Reason Admin 200 mg ONCE ONCE 12/24/18 DC 12/24/18 Phenazopyridi PO 23:30 23:26 ne HCl 12/24/18 23:31 (Pyridium) Procedures/MDM MDM: 53yo F patient with complaint of dysuria x 2 weeks was evaluated in ED. History and physical consistent with cystitis. However, UA negative for leukocytes or nitrates. I have had a lengthy discussion with pt that d/t chronic symptoms a f/u with her PCP and subsequent referral to urology may be necessary at this time. I have decided to treat pt for presumptive cystitis with Macrobid and Pyridium and have explained to pt if symptoms still persist she is to f/u with urology. Pt expressed understanding and agreement to plan. At this time given non-toxic appearance, unremarkable exam, and normal VS, pt is stable for discharge with outpatient management. Follow up with PCP in 2-3 days, and return to ED for any new or concerning symptoms, such as fever, pain, vomiting. Departure Diagnosis: Primary Impression: Cystitis Additional Impression: Urinary urgency Condition: Stable Patient Instructions: Cystitis Referrals: [facility] [place] Usted se otoole hecho un examen mdico de control que le indica que no est en america condicin que requiera tratamiento urgente en el Departamento de Emergencia. Un estudio ms profundo y el tratamiento de palacio condicin pueden esperar sin ningn riesgo hasta que usted sea atendida/o en el consultorio de palacio mdico o america clnica. Es responsabilidad suya arreglar america quin para el seguimiento del lorena. MANEJO DE CONDICIONES NO URGENTES EN EL FUTURO 1) Si usted tiene un mdico de atencin primaria: Usted debera llamar a palacio mdico de atencin primaria antes de venir al departamento de emergencia. Despus de las horas de consultorio, palacio doctor o palacio asociado/a est disponible por telfono. El mdico o enfermero de sandra en el servicio telefnico puede asesorarle por naomi medio para atender el problema, o lorena contrario se puede programar america quin. 2) Si usted no tiene un mdico de atencin primaria: Llame al mdico o condado institucions de referencia que aparece abajo swathi las horas de consultorio para hacer america quin para que le vean. SI USTED NO PUEDE PAGAR PARA EDMAR UN MEDICO puede ir a: [facility] [address] [place] [address] [facility] [address] [place] [address] [facility] [address] [place] [address] [facility] [address] [place], [place] [id number] [facility] [place] [address] [facility] [address] [place] [address] OFFICE FAX , [facility] [address] [place], [place] [id number] [address] [place]QUE[place] [address] [place] [address] [address] AGUILAR, [facility] [address] [facility], [facility] [address] [facility] [address] [place] [address] [facility] [address] [place] [address] [facility] [id number] - [facility]PHIE TREVINO [address], [facility] [address] [address], [place] [address] [facility] [address], [facility] [address] [facility] [address] [place], [place] [id number] ANGI BILLINGSLEY PA-C Dec 27, 2018 14:03
== END 2018-12-25 00:47 | disposition home or self-care (01) ==
LOC: FTE 22:25
DX: N30.90 Cystitis, unspecified without hematuria (principal); E11.9 Type 2 diabetes mellitus without complications; I10 Essential (primary) hypertension; Z79.82 Long term (current) use of aspirin; Z79.84 Long term (current) use of oral hypoglycemic drugs; Z86.73 Personal history of transient ischemic attack (TIA), and cerebral infarction without residual deficits
CPT/HCPCS: 81001; Z7502; Z7610; 81003; 99283